=== PATIENT | female | born 1970 | race American Indian/Alaskan Native ===

== ENCOUNTER 2019-04-08 14:12 | Emergency (ER) | payer MEDICAID ==
--- NOTE | 2019-04-08 14:26 | Event Note ---
ED Screening Note Date of service: 04/08/19 Time: 14:21 ED Screening Note: This is a 49 y.o. F. that presents to the ER with facial swelling and abscess to left frontal scalp 1-2 weeks. PMH anxiety, depression, & HTN This initial assessment/diagnostic orders/clinical plan/treatment(s) is/are subject to change based on patients health status, clinical progression and re- assessment by fellow clinical providers in the ED. Further treatment and workup at subsequent clinical providers discretion. Patient/guardian urged not to elope from the ED as their condition may be serious if not clinically assessed and managed. Initial orders include: Labs and CT of facial bones
[2019-04-08 14:59] LABS: Hemoglobin 13.1 gm/dl (10.1-14.3); Mean Corpuscular HGB Conc 34 % (30-34); Mean Corpuscular Volume 94 fl (79-97); Platelet Count 256 K/mm3 (140-440); Red Blood Count 4.14 M/mm3 (3.65-5.03); Red Cell Distribution Width 14.6 % (13.2-15.2)
[2019-04-08] MEDS ORDERED: CLEOCIN PO ONE (15:13)
[2019-04-08 15:19] LABS: BUN/Creatinine Ratio 13; Blood Urea Nitrogen 8 mg/dL (7-17); Calcium 9.4 mg/dL (8.4-10.2); Hemolysis Index 17
[2019-04-08] MEDS ORDERED: K-DUR PO ONE (16:28)
[2019-04-08] MEDS ORDERED: IBUPROFEN PO ONE (16:46)
[2019-04-08] MEDS ORDERED: IBUPROFEN ONE (16:50)
--- NOTE | 2019-04-08 17:43 | Emergency Department Report ---
HPI - General Chief Complaint: Skin Rash Time Seen by Provider: 04/08/19 14:21 - HPI HPI: 49-year-old female presents to the emergency department some painful swollen lesions that have been occurring to her face over the past few days. She says that she has had this in the past. She also has some swelling around the left eye. She denies any injury, fall, trauma. The patient admits to a history of bad anxiety and has been scratching herself a lot. The patient says that she has "come on rough times" lately and essentially has been homeless. She has been staying at a friend's house in their trailer and says that she has been exposed to some black mold. She has a past medical history of arthritis, COPD, hypertension, depression, anxiety. She does not have any primary care physician. She has not taken anything for her symptoms prior to presentation. ED Past Medical Hx - Past Medical History Previous Medical History?: Yes Hx Hypertension: Yes Hx Heart Attack/AMI: No Hx Congestive Heart Failure: No Hx Diabetes: No Hx Deep Vein Thrombosis: No Hx Arthritis: Yes Hx Headaches / Migraines: No Hx Psychiatric Treatment: Yes (DEPRESSION,anxiety) Hx COPD: Yes Hx HIV: No Additional medical history: CHRONIC BACK PAIN, OA - Surgical History Past Surgical History?: Yes Hx Coronary Stent: No Additional Surgical History: CS 4X,TUBAL LIGATION, TONSILECTOMY - Social History Smoking Status: Current Some Day Smoker Substance Use Type: Alcohol, Marijuana - Medications Home Medications: Home Medications Medication Instructions Recorded Confirmed Last Taken Type Ibuprofen [Motrin 800 MG tab] 800 mg PO TID PRN #21 tablet 09/20/14 03/30/15 03/29/15 Rx ALBUTEROL Inhaler (OR & NICU) 2 puff IH TID PRN 03/30/15 03/30/15 03/30/15 History [ProAir HFA Inhaler] ALPRAZolam [Xanax TAB] 2 mg PO QHS 03/30/15 03/30/15 03/29/15 History Chlorthalidone [Thalitone] 25 mg PO QDAY 03/30/15 03/30/15 03/23/15 History Fluticasone/Salmeterol [Advair 1 each IH QDAY 03/30/15 03/30/15 Unknown History 250-50 Diskus] Nortriptyline [Pamelor] 25 mg PO QDAY 03/30/15 03/30/15 03/23/15 History Oxycodone HCl/Acetaminophen 1 tab PO Q6HR 03/30/15 03/30/15 03/30/15 09:00 History [Oxycodone-Acetaminophen 5-325] Tiotropium [Spiriva] 1 tab INHALATION QDAY 03/30/15 03/30/15 03/29/15 History Acetaminophen/Codeine [Tylenol #3] 1 tab PO Q4HR PRN #10 tablet 08/13/16 Unknown Rx Ibuprofen [Motrin] 800 mg PO Q8HR PRN #15 tablet 08/13/16 Unknown Rx Clindamycin [Clindamycin CAP] 300 mg PO Q8H #21 cap 04/08/19 Unknown Rx Mupirocin [Bactroban 2%] 1 applic TP TID #1 tube 04/08/19 Unknown Rx ED Review of Systems ROS: Stated complaint: HANDS NUMB/FACE SWELLING Other details as noted in HPI Comment: All other systems reviewed and negative Constitutional: denies: chills, fever Eyes: denies: eye pain, vision change ENT: denies: ear pain, throat pain Respiratory: denies: cough, shortness of breath Cardiovascular: denies: chest pain, palpitations Gastrointestinal: denies: abdominal pain, vomiting Genitourinary: denies: dysuria, discharge Musculoskeletal: denies: back pain, arthralgia Skin: rash, lesions Neurological: headache. denies: weakness, numbness Physical Exam - Physical Exam Vital Signs: Vital Signs 04/08/19 04/08/19 04/08/19 14:21 15:43 16:49 Temperature 98.4 F Pulse Rate 83 Respiratory 16 16 17 Rate Blood Pressure 137/79 [Right] O2 Sat by Pulse 100 Oximetry Physical Exam: GENERAL: The patient is well-developed well-nourished. HENT: Normocephalic. Atraumatic. Patient has moist mucous membranes. EYES: Extraocular motions are intact. Pupils equal reactive to light bilaterally. NECK: Supple. Trachea is midline. CHEST/LUNGS: Clear to auscultation. There is no respiratory distress noted. HEART/CARDIOVASCULAR: Regular. There is no tachycardia. There is no murmur. ABDOMEN: Abdomen is soft, nontender. Patient has normal bowel sounds. There is no abdominal distention. SKIN: There is left periorbital edema but no erythema there. The patient has a lesion to the left upper forehead that is the size of half of a golf ball. It is firm/indurated, erythematous, with a central small ulcer. The patient also has another much smaller lesion to the right cheek. NEURO: The patient is awake, alert, and oriented. The patient is cooperative. The patient has no focal neurologic deficits. The patient has normal speech. Cranial nerves II through XII grossly intact. MUSCULOSKELETAL: There is no tenderness or deformity. There is no evidence of acute injury. ED Course Vital Signs 04/08/19 04/08/19 04/08/19 14:21 15:43 16:49 Temperature 98.4 F Pulse Rate 83 Respiratory 16 16 17 Rate Blood Pressure 137/79 [Right] O2 Sat by Pulse 100 Oximetry ED Medical Decision Making - Lab Data Result diagrams: 04/08/19 14:36 04/08/19 14:36 - Radiology Data Radiology results: report reviewed CT head/brain wo con INDICATION: Headache, facial swelling. TECHNIQUE: Routine CT head without contrast. All CT scans at this location are performed using CT dose reduction for ALARA by means of automated exposure control. COMPARISON: None. FINDINGS: BRAIN / INTRACRANIAL CONTENTS: Soft tissue swelling in the left frontal scalp without discrete fluid collection. Underlying calvarium appears intact and normal. No acute hemorrhage, mass effect, midline shift, or hydrocephalus. No appreciable acute large territorial or lacunar infarct. Normal he-white differentiation. Normal ventricular and cisternal size for age. Moderate hyperostosis frontalis and calcification of the falx cerebri. ORBITS: No significant abnormality of visualized orbits. SINUSES / MASTOIDS: No significant abnormality of visualized sinuses and mastoid air cells. ADDITIONAL FINDINGS: None. IMPRESSION: 1. No acute intracranial abnormality. 2. Subcutaneous edema and soft tissue swelling in the left frontal scalp without evidence of significant calvarial abnormality. Paranasal sinuses appear clear. CT ORBIT without contrast INDICATION: Periorbital facial swelling. TECHNIQUE: CT ORBIT without contrast. All CT scans at this location are performed using CT dose reduction for ALARA by means of automated exposure control. COMPARISON: None available. FINDINGS: There is moderate preseptal edema and soft tissue swelling in the left periorbital soft tissues extending into the left forehead without discrete well-defined fluid collection or abscess. There is no evidence of postseptal extension into the left orbit. The left globe appears normal. No radiopaque foreign bodies are identified. The paranasal sinuses are clear. There is no aggressive appearing bone destruction. The mastoid air cells and middle ears are clear. IMPRESSION: 1. Preseptal cellulitis around the left orbit extending into the left forehead without discrete fluid collection. No evidence of postseptal cellulitis in the left orbit. - Medical Decision Making This patient presents with a complaint of a three-day history of some rash and lesions to the face. The largest one is to the left upper forehead. There is some swelling around the left eye. Labs are mostly unremarkable except for a very mild leukocytosis. Vital signs stable including being afebrile. CT of the head did not show any bleed, shift, mass, ischemia, or any other acute process. CT of the orbits shows a preseptal cellulitis to the left orbit but no post- septal cellulitis. The patient is placed on both clindamycin and Bactroban. She's been given referrals for primary care and dermatology. She will return to the ER with any worsening of her symptoms or any acute distress. - Differential Diagnosis cellulitis, abscess, cyst, dermatitis Critical Care Time: No Critical care attestation.: If time is entered above; I have spent that time in minutes in the direct care of this critically ill patient, excluding procedure time. ED Disposition Clinical Impression: Facial rash, Rash and nonspecific skin eruption Disposition: DC- TO HOME OR SELFCARE Is pt being admited?: No Condition: Stable Instructions: Acute Rash (ED), Abscess (ED) Additional Instructions: Please follow up with a primary care physician in the next few days. I have given you a referral for a local primary care clinic. I have also given you a referral for a local branch specialist. Take the antibiotics as prescribed. Return to the emergency Department with any worsening of your symptoms or any acute distress. Prescriptions: Mupirocin [Bactroban 2%] 1 applic TP TID #1 tube Clindamycin [Clindamycin CAP] 300 mg PO Q8H #21 cap Referrals: CHATA LIMON MD [Staff Physician] - 2-3 Days [facility] [Outside] - 2-3 Days
--- NOTE | 2019-04-08 17:46 | Cat Scan Report ---
CT head/brain wo con INDICATION: Headache, facial swelling. TECHNIQUE: Routine CT head without contrast. All CT scans at this location are performed using CT dos e reduction for ALARA by means of automated exposure control. COMPARISON: None. FINDINGS: BRAIN / INTRACRANIAL CONTENTS: Soft tissue swelling in the left frontal scalp without discrete fluid collection. Underlying calvarium appears intact and normal. No acute hemorrhage, mass effect, midline shift, or hydrocephalus. No appreciable acute large territorial or lacunar infarct. Normal he-whit e differentiation. Normal ventricular and cisternal size for age. Moderate hyperostosis frontalis and calcification of the falx cerebri. ORBITS: No significant abnormality of visualized orbits. SINUSES / MASTOIDS: No significant abnormality of visualized sinuses and mastoid air cells. ADDITIONAL FINDINGS: None. IMPRESSION: 1. No acute intracranial abnormality. 2. Subcutaneous edema and soft tissue swelling in the left frontal scalp without evidence of signific ant calvarial abnormality. Paranasal sinuses appear clear. Signer Name: Vikash Arambula MD Signed: 04/08/2019 5:42 PM Workstation Name: [id number]
--- NOTE | 2019-04-08 18:00 | Cat Scan Report ---
CT ORBIT without contrast INDICATION: Periorbital facial swelling. TECHNIQUE: CT ORBIT without contrast. All CT scans at this location are performed using CT dose reduction for AL ISABELLE by means of automated exposure control. COMPARISON: None available. FINDINGS: There is moderate preseptal edema and soft tissue swelling in the left periorbital soft tissues exten ding into the left forehead without discrete well-defined fluid collection or abscess. There is no ev idence of postseptal extension into the left orbit. The left globe appears normal. No radiopaque fore ign bodies are identified. The paranasal sinuses are clear. There is no aggressive appearing bone elmo truction. The mastoid air cells and middle ears are clear. IMPRESSION: 1. Preseptal cellulitis around the left orbit extending into the left forehead without discrete fluid collection. No evidence of postseptal cellulitis in the left orbit. Signer Name: Vikash Arambula MD Signed: 04/08/2019 5:56 PM Workstation Name: [id number]
[2019-04-08 18:21] VITALS: BP 130/83
== END 2019-04-08 18:22 | disposition home or self-care (01) ==
LOC: ED 14:12
DX: R21 Rash and other nonspecific skin eruption (principal); I10 Essential (primary) hypertension; M19.90 Unspecified osteoarthritis, unspecified site; F32.9 Major depressive disorder, single episode, unspecified; F41.9 Anxiety disorder, unspecified; J44.9 Chronic obstructive pulmonary disease, unspecified; G89.29 Other chronic pain; M54.9 Dorsalgia, unspecified; F17.200 Nicotine dependence, unspecified, uncomplicated; F12.90 Cannabis use, unspecified, uncomplicated; Z98.51 Tubal ligation status; Z79.899 Other long term (current) drug therapy; Z88.2 Allergy status to sulfonamides
CPT/HCPCS: 36415; 70450; 70480; 80048; 84443; 85027; 99284

== ENCOUNTER 2020-09-19 18:10 | Observation (INO) | payer MEDICAID ==
--- NOTE | 2020-09-19 18:20 | Consultation ---
History of Present Illness Consult date: 09/19/20 Reason for Consult: ams History of present illness: [facility] Date of Service: 09/19/2020 18:02:07 Impression: G93.4 - Encephalopathy, unspecified Comments/Sign-Out: 50 yo F with acute onset of encephalopathy now not speaking and indicating that she is having severe pain in her right ear that has rendered her mute (not aphasic; she is not attempting to make any vocalizations which makes no sense). This is highly atypical and does not seem consistent with stroke. Dissection c ould cause referred pain to the ear with stroke like symptoms but highly unlikely Suspect toxic metabolic drug intoxication or psychiatric disorder Metrics: Last Known Well: 09/19/2020 17:00:00 [facility] Notification Time: 09/19/2020 18:01:32 Arrival Time: 09/19/2020 18:10:00 Stamp Time: 09/19/2020 18:02:07 Time First Login Attempt: 09/19/2020 18:06:49 Symptoms: ams, not speaking, pain in right ear NIHSS Start Assessment Time: 09/19/2020 18:11:14 Patient is not a candidate for Alteplase/Activase. Patient was not deemed candidate for Alteplase/Activase thrombolytics because of Nonfocal exam except not vocalizing, cannot r/o CIs. CT head showed no acute hemorrhage or acute core infarct. Lower Likelihood of Large Vessel Occlusion but Following Stat Studies are Recommended CTA Head and Neck. Reviewed, No Indication of Large Vessel Occlusive Thrombus, Patient is not an PERICO Candidate. ED Physician notified of diagnostic impression and management plan on 09/19/2020 18:44:55 Our recommendations are outlined below. Recommendations: STAT CTA head and neck to rule out dissection or LVO -- negative Aspirin x 1 Will not recommend alteplase since symptoms not consistent with ischemic stroke and cannot confirm history w patient who is not speaking, no contact information. If there is concern for stroke and no evidence of toxic metabolic encephalopathy, MRI can be considered Routine Consultation with Inhouse Neurology for Follow up Care Sign Out: Discussed with Emergency Department Provider History of Present Illness: Patient is a 50 year old Female. Patient was brought by EMS for symptoms of ams, not speaking, pain in right ear 50 yo F hx marijuana and tobacco abuse depression anxiety HTN COPD who presents with altered mental status. She complains of severe R ear pain and inability to talk as a result. She was making food at home. Boyfriend left the room and came back to find her unresponsive on the ground. Past Medical History: Hypertension NIHSS may not be reliable due to: Altered mental status Examination: BP(.), Pulse(.), Blood Glucose(.) 1A: Level of Consciousness - Alert; keenly responsive + 0 1B: Ask Month and Age - Both Questions Right + 0 1C: Blink Eyes & Squeeze Hands - Performs Both Tasks + 0 2: Test Horizontal Extraocular Movements - Normal + 0 3: Test Visual Vargas - No Visual Loss + 0 4: Test Facial Palsy (Use Grimace if Obtunded) - Normal symmetry + 0 5A: Test Left Arm Motor Drift - No Drift for 10 Seconds + 0 5B: Test Right Arm Motor Drift - No Drift for 10 Seconds + 0 6A: Test Left Leg Motor Drift - No Drift for 5 Seconds + 0 6B: Test Right Leg Motor Drift - No Drift for 5 Seconds + 0 7: Test Limb Ataxia (FNF/Heel-Duggan) - No Ataxia + 0 8: Test Sensation - Normal; No sensory loss + 0 9: Test Language/Aphasia - Normal; No aphasia + 0 10: Test Dysarthria - Mute/Anarthric + 2 11: Test Extinction/Inattention - No abnormality + 0 NIHSS Score: 2 Pre-Morbid Modified Ranking Scale: 0 Points = No symptoms at all Patient/Family was informed the Neurology Consult would happen via TeleHealth consult by way of interactive audio and video telecommunications and consented to receiving care in this manner. Due to the immediate potential for life-threatening deterioration due to underlying acute neurologic illness, I spent 35 minutes providing critical care. This time includes time for face to face visit via telemedicine, review of medical records, imaging studies and discussion of findings with providers, the patient and/or family. Dr Jose Mccormick [facility] Case [id number] Medications and Allergies Allergies Allergy/AdvReac Type Severity Reaction Status Date / Time Sulfa (Sulfonamide Allergy Unknown Verified 04/08/19 14:21 Antibiotics) Home Medications Medication Instructions Recorded Confirmed Last Taken Type Ibuprofen [Motrin 800 MG tab] 800 mg PO TID PRN #21 tablet 09/20/14 03/30/15 03/29/15 Rx ALPRAZolam [Xanax TAB] 2 mg PO QHS 03/30/15 03/30/15 03/29/15 History Albuterol Mdi (or & Nicu Only) 2 puff IH TID PRN 03/30/15 03/30/15 03/30/15 History [ProAir HFA Inhaler] Chlorthalidone [Thalitone] 25 mg PO QDAY 03/30/15 03/30/15 03/23/15 History Fluticasone/Salmeterol [Advair 1 each IH QDAY 03/30/15 03/30/15 Unknown History 250-50 Diskus] Nortriptyline [Pamelor] 25 mg PO QDAY 03/30/15 03/30/15 03/23/15 History Oxycodone HCl/Acetaminophen 1 tab PO Q6HR 03/30/15 03/30/15 03/30/15 09:00 History [Oxycodone-Acetaminophen 5-325] Tiotropium [Spiriva] 1 tab INHALATION QDAY 03/30/15 03/30/15 03/29/15 History Acetaminophen/Codeine [Tylenol #3] 1 tab PO Q4HR PRN #10 tablet 08/13/16 Unknown Rx Ibuprofen [Motrin] 800 mg PO Q8HR PRN #15 tablet 08/13/16 Unknown Rx Clindamycin [Clindamycin CAP] 300 mg PO Q8H #21 cap 04/08/19 Unknown Rx Mupirocin [Bactroban 2%] 1 applic TP TID #1 tube 04/08/19 Unknown Rx Results - Laboratory Findings CBC and BMP: 09/19/20 18:52 09/19/20 18:52
--- NOTE | 2020-09-19 19:03 | Cat Scan Report ---
CT head/brain wo con INDICATION / CLINICAL INFORMATION: 50 years Female; MAIN. TECHNIQUE: Routine CT head without contrast. All CT scans at this location are performed using CT dos e reduction for ALARA by means of automated exposure control. COMPARISON: The study is compared to the previous CT of 04/08/2019. FINDINGS: BRAIN / INTRACRANIAL CONTENTS: The motion and positioning degrade the image quality. Additionally, th ere is hyperostosis frontalis interna which results in beam hardening. However, the brain parenchyma appears to demonstrate appropriate attenuation. The ventricular system is within normal limits in siz e and configuration. There is dense calcification along the falx. However, there is no clear CT evidence of acute intracra nial hemorrhage or significant mass effect. ORBITS: No significant abnormality of visualized orbits. SINUSES / MASTOIDS: No significant abnormality in the visualized paranasal sinuses or mastoid air russell ls. CRANIOCERVICAL JUNCTION: No significant abnormality. ADDITIONAL FINDINGS: None. IMPRESSION: 1. There is no clear CT evidence of acute intracranial process. The study was specified as code stroke and called emergently to Dr. Randhawa at 5:56 PM Central standard time. Signer Name: Angel Song MD Signed: 09/19/2020 6:59 PM Workstation Name: [id number]
--- NOTE | 2020-09-19 19:04 | Emergency Department Report ---
HPI - General Chief Complaint: Altered Mental Status Time Seen by Provider: 09/19/20 18:37 - HPI HPI: This is a 50-year-old female presents to the emergency department, via EMS from home, with a complaint of right ear and right-sided neck pain. The patient says that her significant other called for EMS at her request. The patient was made a code stroke through triage and went directly to CT scan where she was seen by a telemedicine neurologist. At that time, the patient was nonverbal but was following commands. The patient had a CT scan of the head and then CT angiography of the head and neck before coming back to bed #37. At the time of my examination the patient's complaint is the right sided ear pain that she says has been going on for the past 2 months but worsened today. She has a past medical history of COPD, not oxygen dependent, and hypertension. She has not taken anything for symptoms prior to presentation today. She does not have a primary care physician. She denies any chest pain, fever, vision change, numbness or paresthesias, shortness of breath. She denies any current alcohol use, tobacco use, or illicit drug use. ED Past Medical Hx - Past Medical History Hx Hypertension: Yes Hx Heart Attack/AMI: No Hx Congestive Heart Failure: No Hx Diabetes: No Hx Deep Vein Thrombosis: No Hx Arthritis: Yes Hx Headaches / Migraines: No Hx Psychiatric Treatment: Yes (DEPRESSION,anxiety) Hx COPD: Yes Hx HIV: No Additional medical history: CHRONIC BACK PAIN, OA - Surgical History Hx Coronary Stent: No Additional Surgical History: CS 4X,TUBAL LIGATION, TONSILECTOMY - Social History Smoking Status: Current Some Day Smoker Substance Use Type: Alcohol, Marijuana - Medications Home Medications: Home Medications Medication Instructions Recorded Confirmed Last Taken Type Ibuprofen [Motrin 800 MG tab] 800 mg PO TID PRN #21 tablet 09/20/14 03/30/15 03/29/15 Rx ALPRAZolam [Xanax TAB] 2 mg PO QHS 03/30/15 03/30/15 03/29/15 History Albuterol Mdi (or & Nicu Only) 2 puff IH TID PRN 03/30/15 03/30/15 03/30/15 History [ProAir HFA Inhaler] Chlorthalidone [Thalitone] 25 mg PO QDAY 07/03/30/15 03/23/15 History Fluticasone/Salmeterol [Advair 1 each IH QDAY 03/30/15 03/30/15 Unknown History 250-50 Diskus] Nortriptyline [Pamelor] 25 mg PO QDAY 03/30/15 03/30/15 03/23/15 History Oxycodone HCl/Acetaminophen 1 tab PO Q6HR 03/30/15 03/30/15 03/30/15 09:00 History [Oxycodone-Acetaminophen 5-325] Tiotropium [Spiriva] 1 tab INHALATION QDAY 03/30/15 03/30/15 03/29/15 History Acetaminophen/Codeine [Tylenol #3] 1 tab PO Q4HR PRN #10 tablet 08/13/16 Unknown Rx Ibuprofen [Motrin] 800 mg PO Q8HR PRN #15 tablet 08/13/16 Unknown Rx Clindamycin [Clindamycin CAP] 300 mg PO Q8H #21 cap 04/08/19 Unknown Rx Mupirocin [Bactroban 2%] 1 applic TP TID #1 tube 04/08/19 Unknown Rx ED Review of Systems ROS: Stated complaint: STROKE Other details as noted in HPI Comment: All other systems reviewed and negative Constitutional: denies: chills, fever Eyes: denies: eye pain, vision change ENT: ear pain. denies: throat pain Respiratory: denies: cough, shortness of breath Cardiovascular: denies: chest pain, palpitations Gastrointestinal: denies: abdominal pain, vomiting Genitourinary: denies: dysuria, discharge Musculoskeletal: denies: back pain, arthralgia Skin: denies: rash, lesions Neurological: denies: weakness, numbness Physical Exam - Physical Exam Physical Exam: GENERAL: The patient appears weak/frail and is ill-appearing. HENT: Normocephalic. Atraumatic. Patient has moist mucous membranes. EYES: Extraocular motions are intact. No nystagmus. NECK: Supple. Trachea is midline. CHEST/LUNGS: Clear to auscultation. There is no respiratory distress noted. HEART/CARDIOVASCULAR: Regular. There is no tachycardia. There is no murmur. ABDOMEN: Abdomen is soft, nontender. Patient has normal bowel sounds. There is no abdominal distention. SKIN: Skin is warm and dry. NEURO: The patient is awake, alert, and oriented. The patient is cooperative. There is no slurred speech but the patient talks very quietly and slowly. No facial asymmetry. No pronator drift. MUSCULOSKELETAL: There is no tenderness or deformity. There is no limitation range of motion. ED Course - Reevaluation(s) Reevaluation #1: 09/19/20 19:33 I spoke with the patient's daughter, Nevin, who was able to give me the name and phone number of the patient's "roommate", who is the person that called for EMS. The daughter says that they do not live near the patient but she was contacted by the roommate, Boogie, after he called for EMS. Nevin gave me the phone number for the roommate, Boogie, at [phone]. She also gave me the phone number for the patient's sister, Cecilia Zeng, at [phone]. I spoke with the roommate, Boogie. He says that the patient was cooking in the kitchen when he just returned from the store. He heard some weird noises coming from the kitchen and called out to her but she did not respond. At first, he thought that maybe she went back to her room. He then heard the weird noises again and went into the kitchen to find the patient holding the side of her head and complaining of ear pain. However she was not talking. She then went to the ground and appeared unresponsive so he started CPR but then noticed that she was moving and breathing. EMS initial call was for a patient who was unresponsive but breathing. Both the roommate, as well as the daughter, say that the patient has a history of depression and that she also has some chronic pains and both of these will cause her to go into episodes in which she sleeps and does not eat. ED Medical Decision Making - Lab Data Result diagrams: 09/19/20 18:52 09/19/20 18:52 Lab Results 09/19/20 09/19/20 09/19/20 Range/Units 18:52 18:52 18:52 WBC 9.6 (4.5-11.0) K/mm3 RBC 3.87 (3.65-5.03) M/mm3 Hgb 12.6 (10.1-14.3) gm/dl Hct 37.0 (30.3-42.9) % MCV 96 (79-97) fl MCH 33 H (28-32) pg MCHC 34 (30-34) % RDW 13.4 (13.2-15.2) % Plt Count 243 (140-440) K/mm3 Lymph % (Auto) 20.5 (13.4-35.0) % Tate % (Auto) 7.5 H (0.0-7.3) % Eos % (Auto) 2.8 (0.0-4.3) % Baso % (Auto) 0.7 (0.0-1.8) % Lymph # (Auto) 2.0 (1.2-5.4) K/mm3 Tate # (Auto) 0.7 (0.0-0.8) K/mm3 Eos # (Auto) 0.3 (0.0-0.4) K/mm3 Baso # (Auto) 0.1 (0.0-0.1) K/mm3 Seg Neutrophils % 68.5 (40.0-70.0) % Seg Neutrophils # 6.6 (1.8-7.7) K/mm3 PT 15.3 H (12.2-14.9) Sec. INR 1.21 H (0.87-1.13) APTT 30.1 (24.2-36.6) Sec. Thrombin Time (15.1-19.6) Sec. Sodium 132 L (137-145) mmol/L Potassium 3.1 L (3.6-5.0) mmol/L Chloride 99.8 (98-107) mmol/L Carbon Dioxide 23 (22-30) mmol/L Anion Gap 12 mmol/L BUN 11 (7-17) mg/dL Creatinine 0.8 (0.6-1.2) mg/dL Estimated GFR > 60 ml/min BUN/Creatinine Ratio 14 % Glucose 98 (65-100) mg/dL Calcium 8.9 (8.4-10.2) mg/dL Total Bilirubin (0.1-1.2) mg/dL Direct Bilirubin (0-0.2) mg/dL Indirect Bilirubin mg/dL AST (5-40) units/L ALT (7-56) units/L Alkaline Phosphatase (35-129) units/L Troponin T < 0.010 (0.00-0.029) ng/mL Total Protein (6.3-8.2) g/dL Albumin (3.9-5) g/dL Albumin/Globulin Ratio % TSH (0.270-4.200) mlU/mL Urine Color (Yellow) Urine Turbidity (Clear) Urine pH (5.0-7.0) Urine Protein (Negative) mg/dL Urine Glucose (UA) (Negative) mg/dL Urine Ketones (Negative) mg/dL Urine Blood (Negative) Urine Nitrite (Negative) Urine Bilirubin (Negative) Urine Urobilinogen (<2.0) mg/dL Ur Leukocyte Esterase (Negative) Urine WBC (Auto) (0.0-6.0) /HPF Urine RBC (Auto) (0.0-6.0) /HPF U Epithel Cells (Auto) (0-13.0) /HPF Urine Bacteria (Auto) (Negative) /HPF Urine Mucus /HPF Urine Opiates Screen Urine Methadone Screen Acetaminophen (10.0-30.0) ug/mL Ur Barbiturates Screen Ur Phencyclidine Scrn Ur Amphetamines Screen U Benzodiazepines Scrn Urine Cocaine Screen U Marijuana (THC) Screen Drugs of Abuse Note Plasma/Serum Alcohol (0-0.07) % 09/19/20 09/19/20 09/19/20 Range/Units 18:52 18:52 18:52 WBC (4.5-11.0) K/mm3 RBC (3.65-5.03) M/mm3 Hgb (10.1-14.3) gm/dl Hct (30.3-42.9) % MCV (79-97) fl MCH (28-32) pg MCHC (30-34) % RDW (13.2-15.2) % Plt Count (140-440) K/mm3 Lymph % (Auto) (13.4-35.0) % Tate % (Auto) (0.0-7.3) % Eos % (Auto) (0.0-4.3) % Baso % (Auto) (0.0-1.8) % Lymph # (Auto) (1.2-5.4) K/mm3 Tate # (Auto) (0.0-0.8) K/mm3 Eos # (Auto) (0.0-0.4) K/mm3 Baso # (Auto) (0.0-0.1) K/mm3 Seg Neutrophils % (40.0-70.0) % Seg Neutrophils # (1.8-7.7) K/mm3 PT (12.2-14.9) Sec. INR (0.87-1.13) APTT (24.2-36.6) Sec. Thrombin Time 17.7 (15.1-19.6) Sec. Sodium (137-145) mmol/L Potassium (3.6-5.0) mmol/L Chloride (98-107) mmol/L Carbon Dioxide (22-30) mmol/L Anion Gap mmol/L BUN (7-17) mg/dL Creatinine (0.6-1.2) mg/dL Estimated GFR ml/min BUN/Creatinine Ratio % Glucose (65-100) mg/dL Calcium (8.4-10.2) mg/dL Total Bilirubin 0.40 (0.1-1.2) mg/dL Direct Bilirubin < 0.2 (0-0.2) mg/dL Indirect Bilirubin 0.2 mg/dL AST 15 (5-40) units/L ALT 11 (7-56) units/L Alkaline Phosphatase 53 (35-129) units/L Troponin T (0.00-0.029) ng/mL Total Protein 6.2 L (6.3-8.2) g/dL Albumin 3.7 L (3.9-5) g/dL Albumin/Globulin Ratio 1.5 % TSH 1.180 (0.270-4.200) mlU/mL Urine Color (Yellow) Urine Turbidity (Clear) Urine pH (5.0-7.0) Urine Protein (Negative) mg/dL Urine Glucose (UA) (Negative) mg/dL Urine Ketones (Negative) mg/dL Urine Blood (Negative) Urine Nitrite (Negative) Urine Bilirubin (Negative) Urine Urobilinogen (<2.0) mg/dL Ur Leukocyte Esterase (Negative) Urine WBC (Auto) (0.0-6.0) /HPF Urine RBC (Auto) (0.0-6.0) /HPF U Epithel Cells (Auto) (0-13.0) /HPF Urine Bacteria (Auto) (Negative) /HPF Urine Mucus /HPF Urine Opiates Screen Urine Methadone Screen Acetaminophen (10.0-30.0) ug/mL Ur Barbiturates Screen Ur Phencyclidine Scrn Ur Amphetamines Screen U Benzodiazepines Scrn Urine Cocaine Screen U Marijuana (THC) Screen Drugs of Abuse Note Plasma/Serum Alcohol (0-0.07) % 09/19/20 09/19/20 09/19/20 Range/Units 18:52 18:52 21:50 WBC (4.5-11.0) K/mm3 RBC (3.65-5.03) M/mm3 Hgb (10.1-14.3) gm/dl Hct (30.3-42.9) % MCV (79-97) fl MCH (28-32) pg MCHC (30-34) % RDW (13.2-15.2) % Plt Count (140-440) K/mm3 Lymph % (Auto) (13.4-35.0) % Tate % (Auto) (0.0-7.3) % Eos % (Auto) (0.0-4.3) % Baso % (Auto) (0.0-1.8) % Lymph # (Auto) (1.2-5.4) K/mm3 Tate # (Auto) (0.0-0.8) K/mm3 Eos # (Auto) (0.0-0.4) K/mm3 Baso # (Auto) (0.0-0.1) K/mm3 Seg Neutrophils % (40.0-70.0) % Seg Neutrophils # (1.8-7.7) K/mm3 PT (12.2-14.9) Sec. INR (0.87-1.13) APTT (24.2-36.6) Sec. Thrombin Time (15.1-19.6) Sec. Sodium (137-145) mmol/L Potassium (3.6-5.0) mmol/L Chloride (98-107) mmol/L Carbon Dioxide (22-30) mmol/L Anion Gap mmol/L BUN (7-17) mg/dL Creatinine (0.6-1.2) mg/dL Estimated GFR ml/min BUN/Creatinine Ratio % Glucose (65-100) mg/dL Calcium (8.4-10.2) mg/dL Total Bilirubin (0.1-1.2) mg/dL Direct Bilirubin (0-0.2) mg/dL Indirect Bilirubin mg/dL AST (5-40) units/L ALT (7-56) units/L Alkaline Phosphatase (35-129) units/L Troponin T (0.00-0.029) ng/mL Total Protein (6.3-8.2) g/dL Albumin (3.9-5) g/dL Albumin/Globulin Ratio % TSH (0.270-4.200) mlU/mL Urine Color Yellow (Yellow) Urine Turbidity Clear (Clear) Urine pH 5.0 (5.0-7.0) Urine Protein <15 mg/dl (Negative) mg/dL Urine Glucose (UA) Neg (Negative) mg/dL Urine Ketones Tr (Negative) mg/dL Urine Blood Neg (Negative) Urine Nitrite Neg (Negative) Urine Bilirubin Neg (Negative) Urine Urobilinogen < 2.0 (<2.0) mg/dL Ur Leukocyte Esterase Neg (Negative) Urine WBC (Auto) 1.0 (0.0-6.0) /HPF Urine RBC (Auto) 8.0 (0.0-6.0) /HPF U Epithel Cells (Auto) 3.0 (0-13.0) /HPF Urine Bacteria (Auto) 1+ (Negative) /HPF Urine Mucus 3+ /HPF Urine Opiates Screen Urine Methadone Screen Acetaminophen 5.0 L (10.0-30.0) ug/mL Ur Barbiturates Screen Ur Phencyclidine Scrn Ur Amphetamines Screen U Benzodiazepines Scrn Urine Cocaine Screen U Marijuana (THC) Screen Drugs of Abuse Note Plasma/Serum Alcohol < 0.01 (0-0.07) % 09/19/20 Range/Units 21:50 WBC (4.5-11.0) K/mm3 RBC (3.65-5.03) M/mm3 Hgb (10.1-14.3) gm/dl Hct (30.3-42.9) % MCV (79-97) fl MCH (28-32) pg MCHC (30-34) % RDW (13.2-15.2) % Plt Count (140-440) K/mm3 Lymph % (Auto) (13.4-35.0) % Tate % (Auto) (0.0-7.3) % Eos % (Auto) (0.0-4.3) % Baso % (Auto) (0.0-1.8) % Lymph # (Auto) (1.2-5.4) K/mm3 Tate # (Auto) (0.0-0.8) K/mm3 Eos # (Auto) (0.0-0.4) K/mm3 Baso # (Auto) (0.0-0.1) K/mm3 Seg Neutrophils % (40.0-70.0) % Seg Neutrophils # (1.8-7.7) K/mm3 PT (12.2-14.9) Sec. INR (0.87-1.13) APTT (24.2-36.6) Sec. Thrombin Time (15.1-19.6) Sec. Sodium (137-145) mmol/L Potassium (3.6-5.0) mmol/L Chloride (98-107) mmol/L Carbon Dioxide (22-30) mmol/L Anion Gap mmol/L BUN (7-17) mg/dL Creatinine (0.6-1.2) mg/dL Estimated GFR ml/min BUN/Creatinine Ratio % Glucose (65-100) mg/dL Calcium (8.4-10.2) mg/dL Total Bilirubin (0.1-1.2) mg/dL Direct Bilirubin (0-0.2) mg/dL Indirect Bilirubin mg/dL AST (5-40) units/L ALT (7-56) units/L Alkaline Phosphatase (35-129) units/L Troponin T (0.00-0.029) ng/mL Total Protein (6.3-8.2) g/dL Albumin (3.9-5) g/dL Albumin/Globulin Ratio % TSH (0.270-4.200) mlU/mL Urine Color (Yellow) Urine Turbidity (Clear) Urine pH (5.0-7.0) Urine Protein (Negative) mg/dL Urine Glucose (UA) (Negative) mg/dL Urine Ketones (Negative) mg/dL Urine Blood (Negative) Urine Nitrite (Negative) Urine Bilirubin (Negative) Urine Urobilinogen (<2.0) mg/dL Ur Leukocyte Esterase (Negative) Urine WBC (Auto) (0.0-6.0) /HPF Urine RBC (Auto) (0.0-6.0) /HPF U Epithel Cells (Auto) (0-13.0) /HPF Urine Bacteria (Auto) (Negative) /HPF Urine Mucus /HPF Urine Opiates Screen Presumptive negative Urine Methadone Screen Presumptive negative Acetaminophen (10.0-30.0) ug/mL Ur Barbiturates Screen Presumptive negative Ur Phencyclidine Scrn Presumptive negative Ur Amphetamines Screen Presumptive positive U Benzodiazepines Scrn Presumptive negative Urine Cocaine Screen Presumptive negative U Marijuana (THC) Screen Presumptive positive Drugs of Abuse Note Disclamer Plasma/Serum Alcohol (0-0.07) % - EKG Data -: EKG Interpreted by [facility] EKG shows normal: sinus rhythm, axis, intervals, QRS complexes, ST-T waves Rate: normal - EKG Data When compared to previous EKG there are: previous EKG unavailable Interpretation: normal EKG - Radiology Data Radiology results: report reviewed CT head/brain wo con INDICATION / CLINICAL INFORMATION: 50 years Female; MAIN. TECHNIQUE: Routine CT head without contrast. All CT scans at this location are performed using CT dose reduction for ALAOgin by means of automated exposure control. COMPARISON: The study is compared to the previous CT of 04/08/2019. FINDINGS: BRAIN / INTRACRANIAL CONTENTS: The motion and positioning degrade the image quality. Additionally, there is hyperostosis frontalis interna which results in beam hardening. However, the brain parenchyma appears to demonstrate appropriate attenuation. The ventricular system is within normal limits in size and configuration. There is dense calcification along the falx. However, there is no clear CT evidence of acute intracranial hemorrhage or significant mass eff ect. ORBITS: No significant abnormality of visualized orbits. SINUSES / MASTOIDS: No significant abnormality in the visualized paranasal sinuses or mastoid air cells. CRANIOCERVICAL JUNCTION: No significant abnormality. ADDITIONAL FINDINGS: None. IMPRESSION: 1. There is no clear CT evidence of acute intracranial process. CTA head with intravenous contrast CLINICAL HISTORY: aphasia, right ear pain TECHNIQUE: 0.625 mm thick contiguous axial scans were obtained from the skull base to the skull vertex during rapid bolus administration of intravenous contrast material. Multiplanar reconstructions were produced in the coronal and sagittal planes. In addition 3 plane MIP instructions were produced and reviewed for this report. The axial source images and reconstructed images were reviewed for this report. CONTRAST DOSE REPORT: Omnipaque 350: 100 ml administered intravenously. All CT scans at this location are performed using CT dose reduction for ALARA by means of automated exposure control. FINDINGS: Internal carotid arteries:Jt, cavernous, opthalmic, clinoid and supraclinoid segments of the ICAs have an unremarkable appearance. Middle cerebral arteries:Normal and symmetrical M1 segments of the middle cerebral arteries are demonstrated. No abnormalities are seen on evaluation of the insular or opercular branches. Anterior cerebral arteries:Bilaterally symmetrical A1 segments are demonstrated. No abnormalities are seen along the course of the A2 segments or their visualized pericallosal branches. Vertebral arteries:Bilaterally symmetrical vertebral arteries are demonstrated. Both vertebral arteries contribute to the basilar artery origin. Basilar artery:Basilar artery has an unremarkable appearance. Posterior cerebral arteries: Large posterior communicating arteries are demonstrated bilaterally. Normal and symmetrical appearing posterior cerebral arteries are observed. Dural sinuses: Dural venous sinuses are poorly visualized on this examination. IMPRESSION: 1. No indication of large vessel occlusion or intracranial stenosis. CTA neck without and with intravenous contrast material CLINICAL HISTORY: Aphasia. Right-sided otalgia. TECHNIQUE: Following acquisition of a timing bolus 0.625 mm thick contiguous axial scans were obtained from aortic arch to the skull base during rapid bolus intravenous contrast infusion. In addition to evaluation of axial source images multiplanar reconstructions were produced and reviewed for this report. 3 plane MIP reconstructions were produced and reviewed. Contrast dose report: Omnipaque 350: 100 ml, administered intravenously All CT examinations performed at this facility utilize modulated dose reduction, iterative reconstruction or weight-based dosing, as appropriate, to obtain a radiation dose which is as low as can reasonably be achieved. FINDINGS: Thoracic aorta:No abnormalities are identified along the course of the thoracic aorta..The origins of the great vessels have an unremarkable appearance. Brachiocephalic artery, left common carotid artery origin and left subclavian artery all have an unremarkable appearance. Right carotid artery: Minimal calcified atherosclerotic plaque is observed at the right carotid bifurcation with no indication of associated stenosis. No significant abnormalities are seen along the course of the RCCA, at the right carotid bifurcation or along the cervical portions of the LOLI. Left carotid artery: No abnormalities are noted along the course of the left common carotid artery, at the left carotid bifurcation or along the course of the cervical segments of the LICA. Posterior circulation:The vertebral arteries have an unremarkable appearance. Both vertebral arteries contribute to the basilar artery origin. The basilar artery has an unremarkable appearance. The degree of stenosis, if any, is determined utilizing NASCET like criteria. In this case there is no indication of hemodynamically significant stenosis at the carotid bifurcations or elsewhere. Evaluation of the nonvascular soft tissue structures reveal no abnormality. There is no indication of cervical lymphadenopathy. No abnormalities are seen along the course of the airway. Visualized portions of the parotid glands and the submandibular salivary glands have a normal appearance. Thyroid gland has a normal appearance. Evaluation of the lung apices reveals no evidence of lung nodule or infiltrate. Cervical degenerative changes are observed. These are most pronounced at the C5-6 level. There is no indication of central canal stenosis. IMPRESSION: 1. No indication of hemodynamically significant stenosis at the carotid bifurcations or elsewhere. - Medical Decision Making This patient presented from home after she appears to have had some type of unresponsive episode. However at the time of my examination the patient's complaint was severe right ear pain, some right neck pain, and the patient says that she was awake and was the one who asked her roommate to call EMS. However the roommate says that the patient appeared unresponsive at home, and the telemedicine neurologist also says that the patient was completely mute or aphasic during his evaluation. The patient was made a code stroke and was given an NIH stroke scale of 2. CT scan of the head without contrast did not show any bleed, shift, mass, large territorial infarct, or any other acute process. Neurology did not feel that the patient was a TPA candidate. They did order a CT angiography of the head and neck, more so secondary to the complaint of the neck pain, then concern for a large vessel occlusion. The angiography studies did not show any occlusion, thrombus, or any other acute processes. The neurology consult says toxic encephalopathy versus intoxication versus other. Labs show some hypokalemia with a potassium of 3.1 that was replaced with potassium chloride. Urine drug screen positive for marijuana and amphetamines. The patient says that she takes Adderall and phentermine but denies methamphetamine use. Given the telemedicine neurologist's recommendation for admission and evaluation by in-house neurology, the patient was accepted for admission by the hospitalist, Dr. Tan. Critical Care Time: No Critical care attestation.: If time is entered above; I have spent that time in minutes in the direct care of this critically ill patient, excluding procedure time. ED Disposition Clinical Impression: Unresponsive episode, TIA (transient ischemic attack), Hypokalemia Disposition: [id number] OP ADMIT IP TO THIS HOSP Is pt being admited?: Yes Condition: Fair Time of Disposition: 23:11
[2020-09-19 19:09] LABS: Basophils # (Auto) 0.1 K/mm3 (0.0-0.1); Basophils % (Auto) 0.7 % (0.0-1.8); Eosinophils # (Auto) 0.3 K/mm3 (0.0-0.4); Eosinophils % (Auto) 2.8 % (0.0-4.3); Hemoglobin 12.6 gm/dl (10.1-14.3); Lymphocytes % (Auto) 20.5 % (13.4-35.0); Mean Corpuscular HGB Conc 34 % (30-34); Mean Corpuscular Volume 96 fl (79-97); Monocytes # (Auto) 0.7 K/mm3 (0.0-0.8); Monocytes % (Auto) 7.5 % (0.0-7.3); Platelet Count 243 K/mm3 (140-440); Red Blood Count 3.87 M/mm3 (3.65-5.03); Red Cell Distribution Width 13.4 % (13.2-15.2)
--- NOTE | 2020-09-19 19:18 | Cat Scan Report ---
CTA neck without and with intravenous contrast material CLINICAL HISTORY: Aphasia. Right-sided otalgia. TECHNIQUE: Following acquisition of a timing bolus 0.625 mm thick contiguous axial scans were obtained from aort ic arch to the skull base during rapid bolus intravenous contrast infusion. In addition to evaluation of axial source images multiplanar reconstructions were produced and reviewed for this report. 3 saeid ne MIP reconstructions were produced and reviewed. Contrast dose report: Omnipaque 350: 100 ml, administered intravenously All CT examinations performed at this facility utilize modulated dose reduction, iterative reconstruc tion or weight-based dosing, as appropriate, to obtain a radiation dose which is as low as can reason ably be achieved. FINDINGS: Thoracic aorta:No abnormalities are identified along the course of the thoracic aorta..The origins of the great vessels have an unremarkable appearance. Brachiocephalic artery, left common carotid arter y origin and left subclavian artery all have an unremarkable appearance. Right carotid artery: Minimal calcified atherosclerotic plaque is observed at the right carotid bifur cation with no indication of associated stenosis. No significant abnormalities are seen along the cou rse of the RCCA, at the right carotid bifurcation or along the cervical portions of the LOLI. Left carotid artery: No abnormalities are noted along the course of the left common carotid artery, a t the left carotid bifurcation or along the course of the cervical segments of the LICA. Posterior circulation:The vertebral arteries have an unremarkable appearance. Both vertebral arteries contribute to the basilar artery origin. The basilar artery has an unremarkable appearance. The degree of stenosis, if any, is determined utilizing NASCET like criteria. In this case there is no indication of hemodynamically significant stenosis at the carotid bifurcations or elsewhere. Evaluation of the nonvascular soft tissue structures reveal no abnormality. There is no indication of cervical lymphadenopathy. No abnormalities are seen along the course of the airway. Visualized porti ons of the parotid glands and the submandibular salivary glands have a normal appearance. Thyroid gla nd has a normal appearance. Evaluation of the lung apices reveals no evidence of lung nodule or infil trate. Cervical degenerative changes are observed. These are most pronounced at the C5-6 level. There is no indication of central canal stenosis. IMPRESSION: 1. No indication of hemodynamically significant stenosis at the carotid bifurcations or elsewhere. Signer Name: Kane Miller MD Signed: 09/19/2020 7:13 PM Workstation Name: [id number]
[2020-09-19 19:19] LABS: INR 1.21 (0.87-1.13); Partial Thromboplastin Time 30.1 Sec. (24.2-36.6)
[2020-09-19 19:24] LABS: Alanine Aminotransferase 11 units/L (7-56); Albumin 3.7 g/dL (3.9-5)
--- NOTE | 2020-09-19 19:26 | Cat Scan Report ---
CTA head with intravenous contrast CLINICAL HISTORY: aphasia, right ear pain TECHNIQUE: 0.625 mm thick contiguous axial scans were obtained from the skull base to the skull vertex during r apid bolus administration of intravenous contrast material. Multiplanar reconstructions were produced in the coronal and sagittal planes. In addition 3 plane MIP instructions were produced and reviewed for this report. The axial source images and reconstructed images were reviewed for this report. CONTRAST DOSE REPORT: Omnipaque 350: 100 ml administered intravenously. All CT scans at this location are performed using CT dose reduction for ALARA by means of automated e xposure control. FINDINGS: Internal carotid arteries:Jt, cavernous, opthalmic, clinoid and supraclinoid segments of the ICAs have an unremarkable appearance. Middle cerebral arteries:Normal and symmetrical M1 segments of the middle cerebral arteries are demon strated. No abnormalities are seen on evaluation of the insular or opercular branches. Anterior cerebral arteries:Bilaterally symmetrical A1 segments are demonstrated. No abnormalities are seen along the course of the A2 segments or their visualized pericallosal branches. Vertebral arteries:Bilaterally symmetrical vertebral arteries are demonstrated. Both vertebral arteri es contribute to the basilar artery origin. Basilar artery:Basilar artery has an unremarkable appearance. Posterior cerebral arteries: Large posterior communicating arteries are demonstrated bilaterally. Nor mal and symmetrical appearing posterior cerebral arteries are observed. Dural sinuses: Dural venous sinuses are poorly visualized on this examination. IMPRESSION: 1. No indication of large vessel occlusion or intracranial stenosis. Signer Name: Kane Miller MD Signed: 09/19/2020 7:21 PM Workstation Name: [id number]
[2020-09-19 19:27] LABS: BUN/Creatinine Ratio 14; Blood Urea Nitrogen 11 mg/dL (7-17); Calcium 8.9 mg/dL (8.4-10.2); Hemolysis Index 4
[2020-09-19] MEDS ORDERED: POTASSIUM CHLORIDE ER 20 MEQ TAB PO ONE (19:28)
[2020-09-19 19:52] LABS: Bilirubin,Direct < 0.2 mg/dL (0-0.2)
[2020-09-19] MEDS ORDERED: IBUPROFEN 600 MG TAB PO ONE (21:51)
[2020-09-19 22:06] LABS: Bacteria,Urine 1+ /HPF (Negative); Bilirubin,Urine NEG (Negative); Blood,Urine NEG (Negative); Color,Urine Yellow (Yellow); Mucus,Urine 3+ /HPF; Protein,Urine <15 mg/dL mg/dL (Negative); Urobilinogen,Urine < 2.0 mg/dL (<2.0)
[2020-09-19] MEDS ORDERED: METOCLOPRAMIDE 10 MG TAB PO PRN (23:24)
[2020-09-19] MEDS ORDERED: ACETAMINOPHEN 325 MG TAB PO PRN ×2 (23:24)
[2020-09-19] MEDS ORDERED: PROMETHAZINE 25 MG RECT SUPP PR PRN (23:24)
[2020-09-19] MEDS ORDERED: MAGNESIUM HYDROXIDE (MOM) ORAL LIQD UDC PO PRN (23:24)
[2020-09-19] MEDS ORDERED: ONDANSETRON 4 MG/2 ML INJ IV PRN ×2 (23:24)
[2020-09-19 23:25] LABS: Amphetamine Screen,Urine PRESUMPTIVE POSITIVE
[2020-09-19 23:26] LABS: Cannabinoid Screen,Urine PRESUMPTIVE POSITIVE
[2020-09-19 23:31] LABS: Benzodiazepines Screen,Urine PRESUMPTIVE NEGATIVE; Methadone Screen,Urine PRESUMPTIVE NEGATIVE; Opiate Screen,Urine PRESUMPTIVE NEGATIVE
[2020-09-19 23:32] LABS: Cocaine Screen,Urine PRESUMPTIVE NEGATIVE
--- NOTE | 2020-09-19 23:40 | History and Physical Report ---
History of Present Illness Date of examination: 09/19/20 Chief complaint: Altered mental status right ear pain History of present illness: 50 years old female with history of COPD and hypertension was brought to the emergency room because up right ear pain and right-sided neck pain and altered mental status. Patient complained of right-sided ear pain for the last 2 months but worsened today. Patient denied any chest pain no fever no vision change no numbness no paresthesia. Right now patient is awake alert oriented talking but complaining of right ear pain. Initial CT scan of the head shows no acute intracranial abnormality. Patient also seen and evaluated by telemetry neurology neurology. Past History Past Medical History: COPD, hypertension Medications and Allergies Allergies Allergy/AdvReac Type Severity Reaction Status Date / Time Sulfa (Sulfonamide Allergy Unknown Verified 04/08/19 14:21 Antibiotics) Home Medications Medication Instructions Recorded Confirmed Last Taken Type Ibuprofen [Motrin 800 MG tab] 800 mg PO TID PRN #21 tablet 09/20/14 03/30/15 03/29/15 Rx ALPRAZolam [Xanax TAB] 2 mg PO QHS 03/30/15 03/30/15 03/29/15 History Albuterol Mdi (or & Nicu Only) 2 puff IH TID PRN 03/30/15 03/30/15 03/30/15 H istory [ProAir HFA Inhaler] Chlorthalidone [Thalitone] 25 mg PO QDAY 03/30/15 03/30/15 03/23/15 History Fluticasone/Salmeterol [Advair 1 each IH QDAY 03/30/15 03/30/15 Unknown History 250-50 Diskus] Nortriptyline [Pamelor] 25 mg PO QDAY 03/30/15 03/30/15 03/23/15 History Oxycodone HCl/Acetaminophen 1 tab PO Q6HR 03/30/15 03/30/15 03/30/15 09:00 History [Oxycodone-Acetaminophen 5-325] Tiotropium [Spiriva] 1 tab INHALATION QDAY 03/30/15 03/30/15 03/29/15 History Acetaminophen/Codeine [Tylenol #3] 1 tab PO Q4HR PRN #10 tablet 08/13/16 Unknown Rx Ibuprofen [Motrin] 800 mg PO Q8HR PRN #15 tablet 08/13/16 Unknown Rx Clindamycin [Clindamycin CAP] 300 mg PO Q8H #21 cap 04/08/19 Unknown Rx Mupirocin [Bactroban 2%] 1 applic TP TID #1 tube 04/08/19 Unknown Rx Active Meds: Active Medications Acetaminophen (Acetaminophen 325 Mg Tab) 650 mg PO Q4H PRN PRN Reason: Pain MILD(1-3)/Fever >100.5/[place] Acetaminophen (Acetaminophen 325 Mg Tab) 650 mg PO Q4H PRN PRN Reason: Pain, Mild (1-3) Aspirin (Aspirin 325 Mg Tab) 325 mg PO QDAY KARL Atorvastatin Calcium (Atorvastatin 40 Mg Tab) 40 mg PO QHS KARL Bisacodyl (Bisacodyl 10 Mg Rect Supp) 10 mg SD QDAY PRN PRN Reason: Constipation Famotidine (Famotidine 20 Mg Tab) 20 mg PO BID KARL Sodium Chloride (Nacl 0.45% 1000 Ml) 1,000 mls @ 100 mls/hr IV DIRECT KARL Ceftriaxone Sodium (Rocephin/Ns 1 Gm/50 Ml) 1 gm in 50 mls @ 100 mls/hr IV Q24H KARL; Protocol Stop: 09/22/20 00:14 Labetalol HCl (Labetalol 20 Mg/4 Ml Inj) 10 mg IV Q5MIN PRN PRN Reason: to maintain SBP < 180 Magnesium Hydroxide (Magnesium Hydroxide (Mom) Oral Liqd Udc) 30 ml PO Q4H PRN PRN Reason: Constipation Metoclopramide HCl (Metoclopramide 10 Mg Tab) 10 mg PO Q6H PRN PRN Reason: Nausea And Vomiting Ondansetron HCl (Ondansetron 4 Mg/2 Ml Inj) 4 mg IV Q8H PRN PRN Reason: Nausea And Vomiting Ondansetron HCl (Ondansetron 4 Mg/2 Ml Inj) 4 mg IV Q8H PRN PRN Reason: Nausea And Vomiting Promethazine HCl (Promethazine 25 Mg Rect Supp) 25 mg SD Q6H PRN PRN Reason: Nausea And Vomiting Sodium Chloride (Sodium Chloride 0.9% 10 Ml Flush Syringe) 10 ml IV BID KARL Sodium Chloride (Sodium Chloride 0.9% 10 Ml Flush Syringe) 10 ml IV PRN PRN PRN Reason: LINE FLUSH Sodium Chloride (Sodium Chloride 0.9% 10 Ml Flush Syringe) 10 ml INJ PRN PRN PRN Reason: LINE FLUSH Review of Systems Ears, nose, mouth and throat: ear pain Breasts: deferred Neurological: change in mentation Exam - Constitutional Vitals: Temp Pulse Resp BP Pulse Ox 97.9 F 68 14 126/63 100 09/19/20 22:00 09/19/20 22:45 09/19/20 22:45 09/19/20 22:45 09/19/20 22:45 General appearance: Present: no acute distress - EENT Eyes: Present: PERRL ENT: hearing intact, clear oral mucosa - Neck Neck: Present: supple, normal ROM - Respiratory Respiratory effort: normal Respiratory: bilateral: CTA - Cardiovascular Heart Sounds: Present: S1 & S2. Absent: rub, click - Extremities Extremities: pulses symmetrical, No edema - Abdominal General gastrointestinal: Present: soft, non-tender, non-distended, normal bowel sounds Female genitourinary: Present: normal - Rectal Rectal Exam: deferred - Neurologic Neurologic: CNII-XII intact, moves all extremities HEART Score - HEART Score Troponin: Troponin T < 0.010 ng/mL (0.00-0.029) 09/19/20 18:52 Results - Labs CBC & Chem 7: 09/19/20 18:52 09/19/20 18:52 Labs: Laboratory Last Values WBC 9.6 K/mm3 (4.5-11.0) 09/19/20 18:52 RBC 3.87 M/mm3 (3.65-5.03) 09/19/20 18:52 Hgb 12.6 gm/dl (10.1-14.3) 09/19/20 18:52 Hct 37.0 % (30.3-42.9) 09/19/20 18:52 MCV 96 fl (79-97) 09/19/20 18:52 MCH 33 pg (28-32) H 09/19/20 18:52 MCHC 34 % (30-34) 09/19/20 18:52 RDW 13.4 % (13.2-15.2) 09/19/20 18:52 Plt Count 243 K/mm3 (140-440) 09/19/20 18:52 Lymph % (Auto) 20.5 % (13.4-35.0) 09/19/20 18:52 Bracken % (Auto) 7.5 % (0.0-7.3) H 09/19/20 18:52 Eos % (Auto) 2.8 % (0.0-4.3) 09/19/20 18:52 Baso % (Auto) 0.7 % (0.0-1.8) 09/19/20 18:52 Lymph # (Auto) 2.0 K/mm3 (1.2-5.4) 09/19/20 18:52 Bracken # (Auto) 0.7 K/mm3 (0.0-0.8) 09/19/20 18:52 Eos # (Auto) 0.3 K/mm3 (0.0-0.4) 09/19/20 18:52 Baso # (Auto) 0.1 K/mm3 (0.0-0.1) 09/19/20 18:52 Seg Neutrophils % 68.5 % (40.0-70.0) 09/19/20 18:52 Seg Neutrophils # 6.6 K/mm3 (1.8-7.7) 09/19/20 18:52 PT 15.3 Sec. (12.2-14.9) H 09/19/20 18:52 INR 1.21 (0.87-1.13) H 09/19/20 18:52 APTT 30.1 Sec. (24.2-36.6) 09/19/20 18:52 Thrombin Time 17.7 Sec. (15.1-19.6) 09/19/20 18:52 Sodium 132 mmol/L (137-145) L 09/19/20 18:52 Potassium 3.1 mmol/L (3.6-5.0) L 09/19/20 18:52 Chloride 99.8 mmol/L (98-107) 09/19/20 18:52 Carbon Dioxide 23 mmol/L (22-30) 09/19/20 18:52 Anion Gap 12 mmol/L 09/19/20 18:52 BUN 11 mg/dL (7-17) 09/19/20 18:52 Creatinine 0.8 mg/dL (0.6-1.2) 09/19/20 18:52 Estimated GFR > 60 ml/min 09/19/20 18:52 BUN/Creatinine Ratio 14 % 09/19/20 18:52 Glucose 98 mg/dL (65-100) 09/19/20 18:52 Calcium 8.9 mg/dL (8.4-10.2) 09/19/20 18:52 Total Bilirubin 0.40 mg/dL (0.1-1.2) 09/19/20 18:52 Direct Bilirubin < 0.2 mg/dL (0-0.2) 09/19/20 18:52 Indirect Bilirubin 0.2 mg/dL 09/19/20 18:52 AST 15 units/L (5-40) 09/19/20 18:52 ALT 11 units/L (7-56) 09/19/20 18:52 Alkaline Phosphatase 53 units/L (35-129) 09/19/20 18:52 Troponin T < 0.010 ng/mL (0.00-0.029) 09/19/20 18:52 Total Protein 6.2 g/dL (6.3-8.2) L 09/19/20 18:52 Albumin 3.7 g/dL (3.9-5) L 09/19/20 18:52 Albumin/Globulin Ratio 1.5 % 09/19/20 18:52 TSH 1.180 mlU/mL (0.270-4.200) 09/19/20 18:52 Urine Color Yellow (Yellow) 09/19/20 21:50 Urine Turbidity Clear (Clear) 09/19/20 21:50 Urine pH 5.0 (5.0-7.0) 09/19/20 21:50 Urine Protein <15 mg/dl mg/dL (Negative) 09/19/20 21:50 Urine Glucose (UA) Neg mg/dL (Negative) 09/19/20 21:50 Urine Ketones Tr mg/dL (Negative) 09/19/20 21:50 Urine Blood Neg (Negative) 09/19/20 21:50 Urine Nitrite Neg (Negative) 09/19/20 21:50 Urine Bilirubin Neg (Negative) 09/19/20 21:50 Urine Urobilinogen < 2.0 mg/dL (<2.0) 09/19/20 21:50 Ur Leukocyte Esterase Neg (Negative) 09/19/20 21:50 Urine WBC (Auto) 1.0 /HPF (0.0-6.0) 09/19/20 21:50 Urine RBC (Auto) 8.0 /HPF (0.0-6.0) 09/19/20 21:50 U Epithel Cells (Auto) 3.0 /HPF (0-13.0) 09/19/20 21:50 Urine Bacteria (Auto) 1+ /HPF (Negative) 09/19/20 21:50 Urine Mucus 3+ /HPF 09/19/20 21:50 Urine Opiates Screen Presumptive negative 09/19/20 21:50 Urine Methadone Screen Presumptive negative 09/19/20 21:50 Acetaminophen 5.0 ug/mL (10.0-30.0) L 09/19/20 18:52 Ur Barbiturates Screen Presumptive negative 09/19/20 21:50 Ur Phencyclidine Scrn Presumptive negative 09/19/20 21:50 Ur Amphetamines Screen Presumptive positive 09/19/20 21:50 U Benzodiazepines Scrn Presumptive negative 09/19/20 21:50 Urine Cocaine Screen Presumptive negative 09/19/20 21:50 U Marijuana (THC) Screen Presumptive positive 09/19/20 21:50 Drugs of Abuse Note Disclamer 09/19/20 21:50 Plasma/Serum Alcohol < 0.01 % (0-0.07) 09/19/20 18:52 - Imaging and Cardiology CT Scan - head: report reviewed Assessment and Plan - Patient Problems (1) Altered mental status Current Visit: Yes Status: Acute Plan to address problem: Admit the patient to the medical telemetry. Put the patient on TIA pathway. Aspirin 325 mg p.o. daily. Lipitor 40 mg p.o. daily. Patient already seen and evaluated by telemetry neurology. MRI of the brain with and without contrast. MRI of the brain and neck with and without contrast. Echocardiogram. PT OT speech evaluation. Will check lipid panel and ammonia level. Pepcid 20 mg p.o. twice daily for GI prophylaxis and heparin 5000 units subcu every 8 hours for DVT prophylaxis. We will recheck CBC CMP in the morning. Please consult neurology if needed. (2) Right ear pain Current Visit: Yes Status: Acute Plan to address problem: Rocephin 1 g IV daily. We will follow the MRI brain. If needed will consult ENT. (3) TIA (transient ischemic attack) Current Visit: Yes Status: Acute Plan to address problem: Admit the patient to the medical telemetry. Put the patient on TIA pathway. Aspirin 325 mg p.o. daily. Lipitor 40 mg p.o. daily. Patient already seen and evaluated by telemetry neurology. MRI of the brain with and without contrast. MRI of the brain and neck with and without contrast. Echocardiogram. PT OT speech evaluation. Will check lipid panel and ammonia level. Pepcid 20 mg p.o. twice daily for GI prophylaxis and heparin 5000 units subcu every 8 hours for DVT prophylaxis. We will recheck CBC CMP in the morning. Please consult neurology if needed. (4) HTN (hypertension) Current Visit: No Status: Chronic Qualifiers: Hypertension type: essential hypertension Qualified Code(s): I10 - Essential (primary) hypertension Plan to address problem: Labetalol 10 mg IV every 8 hours as needed. We will monitor the blood pressure closely. We will continue the home medication
[2020-09-19] MEDS ORDERED: SODIUM CHLORIDE 0.45% 1000 ML 1,000 ML IV SCH (23:45)
[2020-09-19] MEDS ORDERED: ALBUTEROL 8.5 GM MDI INHALATION IH PRN (23:48)
[2020-09-19] MEDS ORDERED: IBUPROFEN 800 MG TAB PO PRN (23:48)
[2020-09-19] MEDS ORDERED: ALBUTEROL 2.5 MG/3 ML NEBU IH PRN (23:53)
[2020-09-20] MEDS: HEPARIN 5,000 UNIT/1 ML VIAL SUB-Q SCH ×3 (00:04→14:05)
[2020-09-20] MEDS: FAMOTIDINE 20 MG TAB PO SCH ×2 (00:05→12:25)
[2020-09-20] MEDS: cefTRIAXone/NS 1 GM/50 ML 1 GM/50 ML BAG IV SCH ×2 (00:05→12:25)
[2020-09-20] MEDS: oxyCODONE /ACETAMINOPHEN 5-325MG TAB PO PRN ×2 (07:40→14:05)
[2020-09-20] MEDS ORDERED: MUPIROCIN 2% OINT 22 GM TP SCH (08:00)
[2020-09-20 08:15] LABS: Basophils # (Auto) 0.1 K/mm3 (0.0-0.1); Basophils % (Auto) 0.7 % (0.0-1.8); Eosinophils # (Auto) 0.4 K/mm3 (0.0-0.4); Eosinophils % (Auto) 4.4 % (0.0-4.3); Hematocrit 37.9 % (30.3-42.9); Hemoglobin 13.1 gm/dl (10.1-14.3); Lymphocytes # (Auto) 2.7 K/mm3 (1.2-5.4); Lymphocytes % (Auto) 27.6 % (13.4-35.0); Mean Corpuscular HGB Conc 35 % (30-34); Mean Corpuscular Volume 95 fl (79-97); Monocytes # (Auto) 0.7 K/mm3 (0.0-0.8); Monocytes % (Auto) 6.9 % (0.0-7.3); Platelet Count 243 K/mm3 (140-440); Red Blood Count 3.98 M/mm3 (3.65-5.03); Red Cell Distribution Width 13.2 % (13.2-15.2)
[2020-09-20 08:18] LABS: INR 1.17 (0.87-1.13)
[2020-09-20 08:31] VITALS: BP 142/78
[2020-09-20 08:55] LABS: BUN/Creatinine Ratio TNR; Blood Urea Nitrogen TNR mg/dL (7-17)
[2020-09-20 08:56] LABS: Calcium TNR mg/dL (8.4-10.2); Chol/HDL Ratio TNR %; HDL Cholesterol TNR mg/dL (40-59); Hemolysis Index TNR; LDL Cholesterol,Direct TNR mg/dL (50-130)
[2020-09-20] MEDS ORDERED: NORTRIPTYLINE 25 MG CAP PO SCH (10:00)
[2020-09-20] MEDS ORDERED: TIOTROPIUM 18 MCG CAP INHALATION IH SCH (10:00)
[2020-09-20] MEDS ORDERED: ASPIRIN 325 MG TAB PO SCH (10:00)
[2020-09-20] MEDS ORDERED: NON-FORMULARY EACH (Fluticasone/Salmeterol [Advair Diskus 250-50 Mcg] 1 EACH Disk.W.Dev) IH SCH (10:00)
[2020-09-20] MEDS: BUDESONIDE 0.5 MG/2 ML NEBU IH SCH ×2 (10:14→10:15)
[2020-09-20] MEDS: ARFORMOTEROL 15 MCG/2 ML NEBU IH SCH ×2 (10:14→10:15)
--- NOTE | 2020-09-20 11:12 | Discharge Summary ---
Providers - Providers Date of Admission: 09/19/20 23:25 Date of discharge: 09/20/20 Attending physician: DAVID SHELDON 09/19/20 Consult to Case Management [CONS] Routine Services Needed at Discharge: Component Inspector Notified:: marcos notified 09/19/20 23:25 Consult to Case Management [CONS] Routine Services Needed at Discharge: Other Component Inspector Notified:: cm notified Occupational Therapy Evaluate and Treat [CONS] Routine Comment: Reason For Exam: Neuro deficits Physical Therapy Evaluation and Treat [CONS] Routine Comment: Reason For Exam: Neuro deficits Primary care physician: ASSISTANT [employer] Hospitalization Condition: Fair Hospital course: Discharge diagnosis: --Right ear pain, severe -Resolved, CT head without any acute findings -Outpatient follow-up with ENT/PCP --Substance abuse, counseled --Hypertension, continue home meds --COPD without exacerbation, stable Disposition: DC-01 TO HOME OR SELFCARE Time spent for discharge: 34 minutes Core Measure Documentation - Palliative Care Palliative Care/ Comfort Measures: Not Applicable - Core Measures Any of the following diagnoses?: none Exam - Constitutional Vitals: Temp Pulse Resp BP Pulse Ox 97.9 F 88 18 142/78 97 09/20/20 08:06 09/20/20 10:39 09/20/20 10:39 09/20/20 08:06 09/20/20 08:06 Plan Activity: advance as tolerated Weight Bearing Status: Weight Bear as Tolerated Diet: low fat, low salt Follow up with: PRIMARY CAREMD [Primary Care Provider] - 7 Days
[2020-09-20 15:13] LABS: Blood Urea Nitrogen 11 mg/dL (7-17); Calcium 9.4 mg/dL (8.4-10.2); Hemolysis Index 96
[2020-09-20 15:21] LABS: BUN/Creatinine Ratio 16
[2020-09-20] MEDS ORDERED: ALPRAZolam 1 MG TAB PO SCH (22:00)
== END 2020-09-20 15:44 | disposition home or self-care (01) ==
LOC: ED 18:10 → 4A 23:25
PROVIDERS: ADMIT Hospitalist; ATTEND Internal Medicine
DX: G45.9 Transient cerebral ischemic attack, unspecified (principal); I10 Essential (primary) hypertension; R41.82 Altered mental status, unspecified; H92.01 Otalgia, right ear; J44.9 Chronic obstructive pulmonary disease, unspecified; M19.90 Unspecified osteoarthritis, unspecified site; E87.6 Hypokalemia; F41.9 Anxiety disorder, unspecified; F32.9 Major depressive disorder, single episode, unspecified; F17.200 Nicotine dependence, unspecified, uncomplicated; R29.702 NIHSS score 2; Z79.82 Long term (current) use of aspirin; Z98.891 History of uterine scar from previous surgery; Z98.51 Tubal ligation status; Z90.49 Acquired absence of other specified parts of digestive tract; Z79.899 Other long term (current) drug therapy
CPT/HCPCS: 36415; 70450; 70496; 70498; 80048; 80061; 80076; 80307; 81001; 82140; 84443; 84484; 85025; 85610; 85670; 85730; 93005; 94640; 96365; 96366; 96372; 97161; 97165; 99285; G0378; J0696; J1644; J7030; Q9967; 80320; G0480

== ENCOUNTER 2020-10-06 01:15 | Emergency (ER) | payer MEDICAID ==
[2020-10-06] MEDS ORDERED: MORPHINE 4 MG/1 ML INJ IM ONE (01:28)
--- NOTE | 2020-10-06 01:32 | Emergency Department Report ---
HPI - General Time Seen by Provider: 10/06/20 01:26 - HPI HPI: This is a 50-year-old female presents to the emergency department via EMS from home with a complaint of a posterior headache after a fall at home this evening. Patient says that she tripped on something and fell backwards hitting her head. She denies any loss of consciousness. The patient also says that she has right arm pain and she says that a door closed on her arm while she was being transported with EMS. Patient is talking with a clenched jaw and when asked why she says that her jaw is hurting her after the fall as well. She denies any vision change, slurred speech, numbness or paresthesias, chest pain, abdominal pain. Patient has a history of COPD but is not oxygen dependent. She has a history of hypertension and the patient says that she has a history of "tremors for years." I saw this patient about 2 weeks ago at this emergency department and the patient was admitted after having some type of unresponsive episode versus a TIA. The patient does not take anything, nor receive anything, for her symptoms prior to presentation. ED Past Medical Hx - Past Medical History Hx Hypertension: Yes Hx Heart Attack/AMI: No Hx Congestive Heart Failure: No Hx Diabetes: No Hx Deep Vein Thrombosis: No Hx Arthritis: Yes Hx Headaches / Migraines: No Hx Psychiatric Treatment: Yes (DEPRESSION,anxiety) Hx COPD: Yes Hx HIV: No Additional medical history: CHRONIC BACK PAIN, OA - Surgical History Hx Coronary Stent: No Additional Surgical History: CS 4X,TUBAL LIGATION, TONSILECTOMY - Social History Smoking Status: Never Smoker - Medications Home Medications: Home Medications Medication Instructions Recorded Confirmed Last Taken Type Ibuprofen [Motrin 800 MG tab] 800 mg PO TID PRN #21 tablet 09/20/14 03/30/15 03/29/15 Rx ALPRAZolam [Xanax TAB] 2 mg PO QHS 03/30/15 03/30/15 03/29/15 History Albuterol Mdi (or & Nicu Only) 2 puff IH TID PRN 03/30/15 03/30/15 03/30/15 History [ProAir HFA Inhaler] Chlorthalidone [Thalitone] 25 mg PO QDAY 03/30/15 03/30/15 03/23/15 History Fluticasone/Salmeterol [Advair 1 each IH QDAY 03/30/15 03/30/15 Unknown History Diskus 250-50 mcg] Nortriptyline [Pamelor] 25 mg PO QDAY 03/30/15 03/30/15 03/23/15 History Oxycodone HCl/Acetaminophen 1 tab PO Q6HR 03/30/15 03/30/15 03/30/15 09:00 History [Oxycodone-Acetaminophen 5-325] Tiotropium [Spiriva] 1 tab INHALATION QDAY 03/30/15 03/30/15 03/29/15 History Acetaminophen/Codeine [Tylenol 1 tab PO Q4HR PRN #10 tablet 08/13/16 Unknown Rx /Codeine # 3 tab] Ibuprofen [Motrin 800 MG tab] 800 mg PO Q8HR PRN #15 tablet 08/13/16 Unknown Rx Mupirocin [Bactroban 2% OINT] 1 applic TP TID #1 tube 04/08/19 Unknown Rx Azithromycin [Zithromax] 250 mg PO DAILY #6 tablet 09/20/20 Unknown Rx Hydroxyzine HCl [hydrOXYzine] 50 mg PO Q8H #20 tablet 09/20/20 Unknown Rx traMADoL [Ultram 50 MG tab] 50 mg PO Q6HR PRN #10 tablet 10/06/20 Unknown Rx ED Review of Systems ROS: Stated complaint: LEG PAIN Other details as noted in HPI Comment: All other systems reviewed and negative Constitutional: denies: chills, fever Eyes: denies: eye pain, vision change ENT: denies: ear pain, throat pain Respiratory: denies: cough, shortness of breath Cardiovascular: denies: chest pain, palpitations Gastrointestinal: denies: abdominal pain, vomiting Genitourinary: denies: dysuria, discharge Musculoskeletal: arthralgia, myalgia Skin: denies: rash, lesions Neurological: headache. denies: weakness, numbness Physical Exam - Physical Exam Physical Exam: GENERAL: The patient is well-developed well-nourished. HENT: Normocephalic. Patient has moist mucous membranes. EYES: Extraocular motions are intact. Pupils equal reactive to light bilaterally. NECK: Supple. Trachea is midline. There is midline and bilateral paraspinal tenderness to palpation. CHEST/LUNGS: Clear to auscultation. There is no respiratory distress noted. HEART/CARDIOVASCULAR: Regular. There is no tachycardia. There is no murmur. ABDOMEN: Abdomen is soft, nontender. Patient has normal bowel sounds. There is no abdominal distention. SKIN: Skin is warm and dry. NEURO: The patient is awake, alert, and oriented. The patient is cooperative. The patient has no focal neurologic deficits. Normal speech. Cranial nerves II through XII grossly intact. MUSCULOSKELETAL: There is no tenderness or deformity. There is no limitation range of motion. There is no evidence of acute injury. BACK: No midline thoracic or lumbar tenderness to palpation. ED Medical Decision Making - Lab Data Result diagrams: 10/06/20 01:10/06/20 01: Lab Results 10/06/20 10/06/20 10/06/20 Range/Units 01:33 01::33 WBC 10.3 (4.5-11.0) K/mm3 RBC 3.60 L (3.65-5.03) M/mm3 Hgb 11.7 (10.1-14.3) gm/dl Hct 34.3 (30.3-42.9) % MCV 95 (79-97) fl MCH 32 (28-32) pg MCHC 34 (30-34) % RDW 12.9 L (13.2-15.2) % Plt Count 275 (140-440) K/mm3 Lymph % (Auto) 19.0 (13.4-35.0) % Adams % (Auto) 7.3 (0.0-7.3) % Eos % (Auto) 5.5 H (0.0-4.3) % Baso % (Auto) 0.6 (0.0-1.8) % Lymph # (Auto) 2.0 (1.2-5.4) K/mm3 Adams # (Auto) 0.8 (0.0-0.8) K/mm3 Eos # (Auto) 0.6 H (0.0-0.4) K/mm3 Baso # (Auto) 0.1 (0.0-0.1) K/mm3 Seg Neutrophils % 67.6 (40.0-70.0) % Seg Neutrophils # 7.0 (1.8-7.7) K/mm3 Sodium 140 (137-145) mmol/L Potassium 4.1 (3.6-5.0) mmol/L Chloride 104.6 (98-107) mmol/L Carbon Dioxide 23 (22-30) mmol/L Anion Gap 17 mmol/L BUN 17 (7-17) mg/dL Creatinine 0.9 (0.6-1.2) mg/dL Estimated GFR > 60 ml/min BUN/Creatinine Ratio 19 % Glucose 87 (65-100) mg/dL Calcium 9.1 (8.4-10.2) mg/dL Total Bilirubin 0.40 (0.1-1.2) mg/dL AST 19 (5-40) units/L ALT 16 (7-56) units/L Alkaline Phosphatase 68 (35-129) units/L Total Creatine Kinase 203 H (30-135) units/L Total Protein 7.3 (6.3-8.2) g/dL Albumin 4.1 (3.9-5) g/dL Albumin/Globulin Ratio 1.3 % Plasma/Serum Alcohol < 0.01 (0-0.07) % - Radiology Data Radiology results: report reviewed, image reviewed interpreted by me: X-ray of the right humerus and right forearm do not show any fractures, subluxation, dislocation, or any acute process. CT HEAD WITHOUT CONTRAST INDICATION / CLINICAL INFORMATION: Pt states she fell backwards hitting her head, now with head pain. TECHNIQUE: All CT scans at this location are performed using CT dose reduction for ALARA by means of automated exposure control. COMPARISON: CT scan dated 09/19/2020 FINDINGS: There is motion artifact HEMORRHAGE: None. EXTRA-AXIAL SPACES: Normal in size and morphology for the patient's age. VENTRICULAR SYSTEM: Normal in size and morphology for the patient's age. CEREBRAL PARENCHYMA: No acute territorial infarct is identified. There is a small lacunar infarct in the right basal ganglia. MIDLINE SHIFT / HERNIATION: None. CEREBELLUM / BRAINSTEM: No significant abnormality. ORBITS: Normal as visualized. SOFT TISSUES: No significant abnormality. SKULL: No significant abnormality. PARANASAL SINUSES / MASTOID AIR CELLS: Normal as visualized. ADDITIONAL FINDINGS: None. IMPRESSION: 1. There is a small lacunar infarct in right basal ganglia. There is no intracranial hemorrhage, mass effect, or midline shift. CT facial bones wo con INDICATION: Pt states she fell backwards hitting her head, now with face pain. TECHNIQUE: All CT scans at this location are performed using the following dose modulation technique: Automated exposure control. Helical slices were obtained through the facial bones. Coronal and sagittal reformatted images were obtained. COMPARISON: None available. FINDINGS: No fracture is seen in the facial bones. No focal lytic or sclerotic lesions are seen. The paranasal sinuses and mastoid air cells are normally aerated. IMPRESSION: 1. No fracture is seen. The paranasal sinuses are normally aerated. CT CERVICAL SPINE WITHOUT CONTRAST INDICATION / CLINICAL INFORMATION: Pt states she fell backwards hitting her head, now with neck pain. TECHNIQUE: Axial CT images were obtained through the cervical spine. Sagittal and coronal reformatted images were produced. All CT scans at this location are performed using CT dose reduction for ALARA by means of automated exposure control. COMPARISON: None available. FINDINGS: VERTEBRAE: No significant abnormality. ALIGNMENT: No significant abnormality. DISC SPACES: There is disc space narrowing with anterior osteophyte formation at C5-6. FACET JOINTS: There is mild degenerative change throughout the cervical spine. CRANIOCERVICAL J UNCTION:No significant abnormality. SPINAL CANAL: No significant abnormality. PARASPINAL SOFT TISSUES: No significant abnormality. ADDITIONAL FINDINGS: None. LUNG APICES: No significant abnormality of visualized lungs. IMPRESSION: 1. There is mild facet degenerative change. There is discogenic degenerative change at C5-6. No fracture or subluxation is seen. - Medical Decision Making This patient presents to the emergency department with a complaint of posterior head pain after having a fall in her room prior to presentation. She also complained of some right arm pain that had something to do with, or occurred while, being transported to the emergency department from home via EMS. X-rays were done of the right upper extremity that do not show any fractures, dislocation, subluxation, foreign body, or any other acute process. The patient had a CT scan done of the head, cervical spine, and facial bones, that also did not show any fractures, hemorrhage, dislocation, subluxation, or any acute processes. Patient's labs have been mostly unremarkable including CBC, metabolic panel, CK level and blood alcohol level. She was given a dose of IM analgesia with improvement of her discomfort and it allowed us to complete her evaluation. Vital signs have been reassuring throughout her ED course. The patient appears safe for discharge home at this time. She has been given multiple referrals for primary care for follow-up. Critical Care Time: No Critical care attestation.: If time is entered above; I have spent that time in minutes in the direct care of this critically ill patient, excluding procedure time. ED Disposition Clinical Impression: Right arm pain Fall Qualifiers: Encounter type: initial encounter Qualified Code(s): W19.XXXA - Unspecified fall, initial encounter Closed head injury Qualifiers: Encounter type: initial encounter Qualified Code(s): S09.90XA - Unspecified injury of head, initial encounter Head contusion Qualifiers: Encounter type: initial encounter Contusion of head detail: unspecified part of head Qualified Code(s): S00.93XA - Contusion of unspecified part of head, init ial encounter Disposition: TO HOME OR SELFCARE Is pt being admited?: No Condition: Stable Instructions: Facial or Scalp Contusion, Head Injury, Adult, [id number] Additional Instructions: Please follow-up with a primary care physician in the next few days. I am gi ving you a few different referrals for local primary care physicians and clinics. You have been prescribed a medication that is sedating and therefore should not be taken prior to driving, working, and responsible for children and in no way should be mixed with alcohol of any quantity. Return to the emergency department with any worsening of your symptoms, new or concerning symptoms not addressed during this current emergency department visit, or with any acute distress. Prescriptions: traMADoL [Ultram 50 MG tab] 50 mg PO Q6HR PRN #10 tablet PRN Reason: Pain Referrals: PRIMARY MD LENA [Primary Care Provider] - 3-5 Days EMILIE MEAD MD [Staff Physician] - 3-5 Days KAMERON MCGOVERN MD [Staff Physician] - 3-5 Days [facility] [Provider Group] - 3-5 Days Time of Disposition: 03:04
[2020-10-06 01:53] LABS: Basophils # (Auto) 0.1 K/mm3 (0.0-0.1); Basophils % (Auto) 0.6 % (0.0-1.8); Eosinophils # (Auto) 0.6 K/mm3 (0.0-0.4); Eosinophils % (Auto) 5.5 % (0.0-4.3); Hematocrit 34.3 % (30.3-42.9); Hemoglobin 11.7 gm/dl (10.1-14.3); Mean Corpuscular HGB Conc 34 % (30-34); Mean Corpuscular Volume 95 fl (79-97); Monocytes # (Auto) 0.8 K/mm3 (0.0-0.8); Monocytes % (Auto) 7.3 % (0.0-7.3); Platelet Count 275 K/mm3 (140-440); Red Cell Distribution Width 12.9 % (13.2-15.2)
[2020-10-06 02:06] LABS: Alanine Aminotransferase 16 units/L (7-56); Albumin 4.1 g/dL (3.9-5); BUN/Creatinine Ratio 19; Blood Urea Nitrogen 17 mg/dL (7-17); Calcium 9.1 mg/dL (8.4-10.2); Hemolysis Index 15
--- NOTE | 2020-10-06 02:10 | XRay Report ---
RIGHT HUMERUS 2 VIEWS INDICATION / CLINICAL INFORMATION: Trauma COMPARISON: None available. FINDINGS: BONES / JOINT(S): No acute fracture or subluxation. No significant arthritis. SOFT TISSUES: No significant abnormality. ADDITIONAL FINDINGS: None. Signer Name: Zurdo Morgan MD Signed: 10/06/2020 2:05 AM Workstation Name: [id number]
--- NOTE | 2020-10-06 02:11 | XRay Report ---
RIGHT FOREARM 2 VIEWS INDICATION / CLINICAL INFORMATION: Trauma COMPARISON: None available. FINDINGS: BONES / JOINT(S): No acute fracture or subluxation. No significant arthritis. SOFT TISSUES: No significant abnormality. ADDITIONAL FINDINGS: None. Signer Name: Zurdo Morgan MD Signed: 10/06/2020 2:07 AM Workstation Name: [email or web address]
--- NOTE | 2020-10-06 02:49 | Cat Scan Report ---
CT HEAD WITHOUT CONTRAST INDICATION / CLINICAL INFORMATION: Pt states she fell backwards hitting her head, now with head pain. TECHNIQUE: All CT scans at this location are performed using CT dose reduction for ALARA by means of automated exposure control. COMPARISON: CT scan dated 09/19/2020 FINDINGS: There is motion artifact HEMORRHAGE: None. EXTRA-AXIAL SPACES: Normal in size and morphology for the patient's age. VENTRICULAR SYSTEM: Normal in size and morphology for the patient's age. CEREBRAL PARENCHYMA: No acute territorial infarct is identified. There is a small lacunar infarct in the right basal ganglia. MIDLINE SHIFT / HERNIATION: None. CEREBELLUM / BRAINSTEM: No significant abnormality. ORBITS: Normal as visualized. SOFT TISSUES: No significant abnormality. SKULL: No significant abnormality. PARANASAL SINUSES / MASTOID AIR CELLS: Normal as visualized. ADDITIONAL FINDINGS: None. IMPRESSION: 1. There is a small lacunar infarct in right basal ganglia. There is no intracranial hemorrhage, mass effect, or midline shift. Signer Name: Zurdo Morgan MD Signed: 10/06/2020 2:44 AM Workstation Name: [id number]
--- NOTE | 2020-10-06 02:52 | Cat Scan Report ---
CT facial bones wo con INDICATION: Pt states she fell backwards hitting her head, now with face pain. TECHNIQUE: All CT scans at this location are performed using the following dose modulation technique: Automated exposure control. Helical slices were obtained through the facial bones. Coronal and sagittal reforma tted images were obtained. COMPARISON: None available. FINDINGS: No fracture is seen in the facial bones. No focal lytic or sclerotic lesions are seen. The paranasal sinuses and mastoid air cells are normally aerated. IMPRESSION: 1. No fracture is seen. The paranasal sinuses are normally aerated. Signer Name: Zurdo Morgan MD Signed: 10/06/2020 2:48 AM Workstation Name: [id number]
--- NOTE | 2020-10-06 02:56 | Cat Scan Report ---
CT CERVICAL SPINE WITHOUT CONTRAST INDICATION / CLINICAL INFORMATION: Pt states she fell backwards hitting her head, now with neck pain. TECHNIQUE: Axial CT images were obtained through the cervical spine. Sagittal and coronal reformatted images were produced. All CT scans at this location are performed using CT dose reduction for ALARA by means of automated exposure control. COMPARISON: None available. FINDINGS: VERTEBRAE: No significant abnormality. ALIGNMENT: No significant abnormality. DISC SPACES: There is disc space narrowing with anterior osteophyte formation at C5-6. FACET JOINTS: There is mild degenerative change throughout the cervical spine. CRANIOCERVICAL JUNCTIO N:No significant abnormality. SPINAL CANAL: No significant abnormality. PARASPINAL SOFT TISSUES: No significant abnormality. ADDITIONAL FINDINGS: None. LUNG APICES: No significant abnormality of visualized lungs. IMPRESSION: 1. There is mild facet degenerative change. There is discogenic degenerative change at C5-6. No fract ure or subluxation is seen. Signer Name: Zurdo Morgan MD Signed: 10/06/2020 2:51 AM Workstation Name: [id number]
[2020-10-06 05:04] VITALS: BP 129/69
== END 2020-10-06 08:01 | disposition home or self-care (01) ==
LOC: ED 01:15
DX: S09.90XA Unspecified injury of head, initial encounter (principal); M79.601 Pain in right arm; I10 Essential (primary) hypertension; M19.91 Primary osteoarthritis, unspecified site; F32.9 Major depressive disorder, single episode, unspecified; F41.9 Anxiety disorder, unspecified; J44.9 Chronic obstructive pulmonary disease, unspecified; Z90.89 Acquired absence of other organs; Z98.890 Other specified postprocedural states; Z79.1 Long term (current) use of non-steroidal anti-inflammatories (NSAID); Z79.2 Long term (current) use of antibiotics; Z79.899 Other long term (current) drug therapy; Z88.2 Allergy status to sulfonamides; W01.0XXA Fall on same level from slipping, tripping and stumbling without subsequent striking against object, initial encounter; Y93.89 Activity, other specified; Y92.009 Unspecified place in unspecified non-institutional (private) residence as the place of occurrence of the external cause; Y99.8 Other external cause status
CPT/HCPCS: 36415; 70450; 70486; 72125; 73060; 73090; 80053; 82550; 85025; 96372; 99285; J2270; 80320; G0480

== ENCOUNTER 2020-10-15 17:47 | Emergency (ER) | payer MEDICAID ==
[2020-10-15] MEDS ORDERED: levETIRAcetam 1000 MG/NS 0.75% 1,000 MG/100 ML BAG IV ONE (17:53)
--- NOTE | 2020-10-15 18:16 | Emergency Department Report ---
ED Altered Mental Status HPI - General Chief Complaint: Altered Mental Status Stated Complaint: ALTERED MENTAL Time Seen by Provider: 10/15/20 17:52 Source: EMS Mode of arrival: Stretcher Limitations: Altered Mental Status - History of Present Illness Initial Comments: Patient is a 50-year-old female who is presenting with altered mental status. Initial call from someone who lives with the patient was for seizure. Is unknown whether the patient has a seizure disorder however she did shake her head yes that she has had seizures in the past but no that she is not on any medications. Patient was poorly conscious on EMS arrival. She was given Narcan and became more alert. The person at her home states that she has not been using any drugs. Patient is only communicating by shaking her head yes or no except for answering that she does know her name and was able to give her full name by mouth. - Related Data Home Medications Medication Instructions Recorded Confirmed Last Taken ALPRAZolam [Xanax TAB] 2 mg PO QHS 03/30/15 03/30/15 03/29/15 Albuterol Mdi (or & Nicu Only) 2 puff IH TID PRN 03/30/15 03/30/15 03/30/15 [ProAir HFA Inhaler] Chlorthalidone [Thalitone] 25 mg PO QDAY 03/30/15 03/30/15 03/23/15 Fluticasone/Salmeterol [Advair 1 each IH QDAY 03/30/15 03/30/15 Unknown Diskus 250-50 mcg] Nortriptyline [Pamelor] 25 mg PO QDAY 03/30/15 03/30/15 03/23/15 Oxycodone HCl/Acetaminophen 1 tab PO Q6HR 03/30/15 03/30/15 03/30/15 09:00 [Oxycodone-Acetaminophen 5-325] Tiotropium [Spiriva] 1 tab INHALATION QDAY 03/30/15 03/30/15 03/29/15 Previous Rx's Medication Instructions Recorded Last Taken Type Ibuprofen [Motrin 800 MG tab] 800 mg PO TID PRN #21 tablet 09/20/14 03/29/15 Rx Acetaminophen/Codeine [Tylenol 1 tab PO Q4HR PRN #10 tablet 08/13/16 Unknown Rx /Codeine # 3 tab] Ibuprofen [Motrin 800 MG tab] 800 mg PO Q8HR PRN #15 tablet 08/13/16 Unknown Rx Mupirocin [Bactroban 2% OINT] 1 applic TP TID #1 tube 04/08/19 Unknown Rx Azithromycin [Zithromax] 250 mg PO DAILY #6 tablet 09/20/20 Unknown Rx Hydroxyzine HCl [hydrOXYzine] 50 mg PO Q8H #20 tablet 09/20/20 Unknown Rx traMADoL [Ultram 50 MG tab] 50 mg PO Q6HR PRN #10 tablet 10/06/20 Unknown Rx Nitrofurantoin [place]/M-Cryst 100 mg PO Q12HR #14 capsule 10/15/20 Unknown Rx [Macrobid CAP] levETIRAcetam [Keppra TAB] 500 mg PO BID #60 tablet 10/15/20 Unknown Rx Allergies Allergy/AdvReac Type Severity Reaction Status Date / Time Sulfa (Sulfonamide Allergy Unknown Verified 04/08/19 14:21 Antibiotics) ED Review of Systems ROS: Stated complaint: ALTERED MENTAL Other details as noted in HPI Comment: Unobtainable due to pts medical conditions ED Past Medical Hx - Past Medical History Hx Hypertension: Yes Hx CVA: Yes Hx Heart Attack/AMI: No Hx Congestive Heart Failure: No Hx Diabetes: No Hx Deep Vein Thrombosis: No Hx Arthritis: Yes Hx Headaches / Migraines: No Hx Psychiatric Treatment: Yes (DEPRESSION,anxiety) Hx COPD: Yes Hx HIV: No Additional medical history: CHRONIC BACK PAIN, OA, TIA - Surgical History Hx Coronary Stent: No Additional Surgical History: CS 4X,TUBAL LIGATION, TONSILECTOMY - Social History Smoking Status: Current Every Day Smoker Substance Use Type: None - Medications Home Medications: Home Medications Medication Instructions Recorded Confirmed Last Taken Type Ibuprofen [Motrin 800 MG tab] 800 mg PO TID PRN #21 tablet 09/20/14 03/30/15 03/29/15 Rx ALPRAZolam [Xanax TAB] 2 mg PO QHS 03/30/15 03/30/15 03/29/15 History Albuterol Mdi (or & Nicu Only) 2 puff IH TID PRN 03/30/15 03/30/15 03/30/15 History [ProAir HFA Inhaler] Chlorthalidone [Thalitone] 25 mg PO QDAY 03/30/15 03/30/15 03/23/15 History Fluticasone/Salmeterol [Advair 1 each IH QDAY 03/30/15 03/30/15 Unknown History Diskus 250-50 mcg] Nortriptyline [Pamelor] 25 mg PO QDAY 03/30/15 03/30/15 03/23/15 History Oxycodone HCl/Acetaminophen 1 tab PO Q6HR 03/30/15 03/30/15 03/30/15 09:00 History [Oxycodone-Acetaminophen 5-325] Tiotropium [Spiriva] 1 tab INHALATION QDAY 03/30/15 03/30/15 03/29/15 History Acetaminophen/Codeine [Tylenol 1 tab PO Q4HR PRN #10 tablet 08/13/16 Unknown Rx /Codeine # 3 tab] Ibuprofen [Motrin 800 MG tab] 800 mg PO Q8HR PRN #15 tablet 08/13/16 Unknown Rx Mupirocin [Bactroban 2% OINT] 1 applic TP TID #1 tube 04/08/19 Unknown Rx Azithromycin [Zithromax] 250 mg PO DAILY #6 tablet 09/20/20 Unknown Rx Hydroxyzine HCl [hydrOXYzine] 50 mg PO Q8H #20 tablet 09/20/20 Unknown Rx traMADoL [Ultram 50 MG tab] 50 mg PO Q6HR PRN #10 tablet 10/06/20 Unknown Rx Nitrofurantoin [place]/M-Cryst 100 mg PO Q12HR #14 capsule 10/15/20 Unknown Rx [Macrobid CAP] levETIRAcetam [Keppra TAB] 500 mg PO BID #60 tablet 10/15/20 Unknown Rx ED Physical Exam - General Limitations: Altered Mental Status General appearance: alert, postictal - Head Head exam: Present: atraumatic, normocephalic - Eye Eye exam: Present: normal appearance, PERRL, EOMI - ENT ENT exam: Present: mucous membranes moist - Neck Neck exam: Present: normal inspection - Respiratory Respiratory exam: Present: normal lung sounds bilaterally. Absent: respiratory distress, wheezes, rales, rhonchi - Cardiovascular Cardiovascular Exam: Present: regular rate, normal rhythm, normal heart sounds. Absent: systolic murmur, diastolic murmur, rubs, gallop - GI/Abdominal GI/Abdominal exam: Present: soft, normal bowel sounds. Absent: distended, tenderness, guarding, rebound - Extremities Exam Extremities exam: Present: normal inspection - Back Exam Back exam: Present: normal inspection - Neurological Exam Neurological exam: Present: alert, altered - Psychiatric Psychiatric exam: Present: normal affect, normal mood - Skin Skin exam: Present: warm, dry, intact, normal color. Absent: rash - Assessment Assessment Interval: Baseline - Level of Consciousness 1a. Level of Consciousness: alert/keenly responsive - LOC Questions 1b. LOC Questions: answers both correctly - LOC Command 1c. LOC Commands: performs tasks correctly - Best Gaze 2. Best Gaze: normal - Visual 3. Visual: no visual loss - Facial Palsy 4. Facial Palsy: normal symmetrical movement - Motor Arm 5a. Motor Arm Left: no drift 5b. Motor Arm Right: no drift - Motor Leg 6a. Motor Leg Left: no drift 6b. Motor Leg Right: no drift - Limb Ataxia 7. Limb Ataxia: absent - Sensory 8. Sensory: normal - Best Language 9. Best Language: no aphasia - Dysarthria 10. Dysarthria: mild/moderate dysarthria - Extinction and Inattention 11. Extinction/Inattention: no abnormality - Scoring Total Score: 1 Stroke Severity: Minor Stroke ED Course Vital Signs 10/15/20 10/15/20 10/15/20 17:50 17:54 17:58 Temperature 97.8 F 97.8 F Pulse Rate 74 74 Respiratory 13 13 13 Rate Blood Pressure 151/89 Blood Pressure 151/89 [Left] O2 Sat by Pulse 100 100 100 Oximetry - Reevaluation(s) Reevaluation #1: 10/15/20 19:07 Patient much more talkative now. States she suffers from chronic pain and be cause of it she states she has decreased appetite. Feels as though she is dehydrated. States she has had seizures in the past before and also has had syncopal episodes. Syncopal episodes been from dehydration. Laboratory studies at this time do not show any significant abnormality of her kidney function. We will give the patient a liter of fluid for possible mild dehydration. Patient was loaded with Keppra. Patient appears to be stable for discharge. - Lab Data Result diagrams: 10/15/20 17:59 10/15/20 17:59 Lab Results 10/15/20 10/15/20 10/15/20 Range/Units 17:58 17:59 17:59 WBC 7.4 (4.5-11.0) K/mm3 RBC 3.79 (3.65-5.03) M/mm3 Hgb 12.6 (10.1-14.3) gm/dl Hct 36.2 (30.3-42.9) % MCV 96 (79-97) fl MCH 33 H (28-32) pg MCHC 35 H (30-34) % RDW 12.8 L (13.2-15.2) % Plt Count 233 (140-440) K/mm3 Lymph % (Auto) 22.7 (13.4-35.0) % [place] % (Auto) 9.5 H (0.0-7.3) % Eos % (Auto) 7.7 H (0.0-4.3) % Baso % (Auto) 1.1 (0.0-1.8) % Lymph # (Auto) 1.7 (1.2-5.4) K/mm3 [place] # (Auto) 0.7 (0.0-0.8) K/mm3 Eos # (Auto) 0.6 H (0.0-0.4) K/mm3 Baso # (Auto) 0.1 (0.0-0.1) K/mm3 Seg Neutrophils % 59.0 (40.0-70.0) % Seg Neutrophils # 4.4 (1.8-7.7) K/mm3 Sodium 137 (137-145) mmol/L Potassium 3.9 (3.6-5.0) mmol/L Chloride 105.0 (98-107) mmol/L Carbon Dioxide 23 (22-30) mmol/L Anion Gap 13 mmol/L BUN 17 (7-17) mg/dL Creatinine 0.9 (0.6-1.2) mg/dL Estimated GFR > 60 ml/min BUN/Creatinine Ratio 19 % Glucose 100 (65-100) mg/dL Calcium 9.3 (8.4-10.2) mg/dL Total Bilirubin 0.50 (0.1-1.2) mg/dL AST 27 (5-40) units/L ALT 18 (7-56) units/L Alkaline Phosphatase 60 (35-129) units/L Total Protein 7.3 (6.3-8.2) g/dL Albumin 4.2 (3.9-5) g/dL Albumin/Globulin Ratio 1.4 % Urine Color (Yellow) Urine Turbidity (Clear) Urine pH (5.0-7.0) Ur Specific [place] (1.003-1.030) Urine Protein (Negative) mg/dL Urine Glucose (UA) (Negative) mg/dL Urine Ketones (Negative) mg/dL Urine Blood (Negative) Urine Nitrite (Negative) Urine Bilirubin (Negative) Urine Urobilinogen (<2.0) mg/dL Ur Leukocyte Esterase (Negative) Urine WBC (Auto) (0.0-6.0) /HPF Urine RBC (Auto) (0.0-6.0) /HPF U Epithel Cells (Auto) (0-13.0) /HPF Urine Mucus /HPF Urine Yeast (Budding) /HPF Urine Opiates Screen Urine Methadone Screen Ur Barbiturates Screen Ur Phencyclidine Scrn U Benzodiazepines Scrn Urine Cocaine Screen Plasma/Serum Alcohol < 0.01 (0-0.07) % 10/15/20 10/15/20 Range/Units 18:30 18:30 WBC (4.5-11.0) K/mm3 RBC (3.65-5.03) M/mm3 Hgb (10.1-14.3) gm/dl Hct (30.3-42.9) % MCV (79-97) fl MCH (28-32) pg MCHC (30-34) % RDW (13.2-15.2) % Plt Count (140-440) K/mm3 Lymph % (Auto) (13.4-35.0) % [place] % (Auto) (0.0-7.3) % Eos % (Auto) (0.0-4.3) % Baso % (Auto) (0.0-1.8) % Lymph # (Auto) (1.2-5.4) K/mm3 [place] # (Auto) (0.0-0.8) K/mm3 Eos # (Auto) (0.0-0.4) K/mm3 Baso # (Auto) (0.0-0.1) K/mm3 Seg Neutrophils % (40.0-70.0) % Seg Neutrophils # (1.8-7.7) K/mm3 Sodium (137-145) mmol/L Potassium (3.6-5.0) mmol/L Chloride (98-107) mmol/L Carbon Dioxide (22-30) mmol/L Anion Gap mmol/L BUN (7-17) mg/dL Creatinine (0.6-1.2) mg/dL Estimated GFR ml/min BUN/Creatinine Ratio % Glucose (65-100) mg/dL Calcium (8.4-10.2) mg/dL Total Bilirubin (0.1-1.2) mg/dL AST (5-40) units/L ALT (7-56) units/L Alkaline Phosphatase (35-129) units/L Total Protein (6.3-8.2) g/dL Albumin (3.9-5) g/dL Albumin/Globulin Ratio % Urine Color [place] (Yellow) Urine Turbidity Slightly-cloudy (Clear) Urine pH 5.0 (5.0-7.0) Ur Specific [place] 1.029 (1.003-1.030) Urine Protein 30 mg/dl (Negative) mg/dL Urine Glucose (UA) Neg (Negative) mg/dL Urine Ketones Tr (Negative) mg/dL Urine Blood Sm (Negative) Urine Nitrite Neg (Negative) Urine Bilirubin Neg (Negative) Urine Urobilinogen 2.0 (<2.0) mg/dL Ur Leukocyte Esterase Mod (Negative) Urine WBC (Auto) 73.0 H (0.0-6.0) /HPF Urine RBC (Auto) 32.0 (0.0-6.0) /HPF U Epithel Cells (Auto) 11.0 (0-13.0) /HPF Urine Mucus 3+ /HPF Urine Yeast (Budding) 1+ /HPF Urine Opiates Screen Negative Urine Methadone Screen Negative Ur Barbiturates Screen Negative Ur Phencyclidine Scrn Negative U Benzodiazepines Scrn Negative Urine Cocaine Screen Negative Plasma/Serum Alcohol (0-0.07) % Critical care attestation.: If time is entered above; I have spent that time in minutes in the direct care of this critically ill patient, excluding procedure time. ED Disposition Clinical Impression: Seizure, Unresponsive episode, UTI (urinary tract infection), Chronic pain Disposition: DC01 TO HOME OR SELFCARE Is pt being admited?: No Does the pt Need Aspirin: No Condition: Stable Instructions: Epilepsy, [id number], Urinary Tract Infection, Adult, [id number] Referrals: PRIMARY CARE, [Primary Care Provider] - 3-5 Days Time of Disposition: 19:18
[2020-10-15 18:37] LABS: Basophils # (Auto) 0.1 K/mm3 (0.0-0.1); Basophils % (Auto) 1.1 % (0.0-1.8); Eosinophils # (Auto) 0.6 K/mm3 (0.0-0.4); Eosinophils % (Auto) 7.7 % (0.0-4.3); Hematocrit 36.2 % (30.3-42.9); Hemoglobin 12.6 gm/dl (10.1-14.3); Lymphocytes # (Auto) 1.7 K/mm3 (1.2-5.4); Lymphocytes % (Auto) 22.7 % (13.4-35.0); Mean Corpuscular HGB Conc 35 % (30-34); Mean Corpuscular Volume 96 fl (79-97); Monocytes # (Auto) 0.7 K/mm3 (0.0-0.8); Monocytes % (Auto) 9.5 % (0.0-7.3); Platelet Count 233 K/mm3 (140-440); Red Blood Count 3.79 M/mm3 (3.65-5.03); Red Cell Distribution Width 12.8 % (13.2-15.2)
[2020-10-15 18:52] LABS: Alanine Aminotransferase 18 units/L (7-56); Albumin 4.2 g/dL (3.9-5); BUN/Creatinine Ratio 19; Blood Urea Nitrogen 17 mg/dL (7-17); Calcium 9.3 mg/dL (8.4-10.2); Hemolysis Index 10
[2020-10-15] MEDS ORDERED: SODIUM CHLORIDE 0.9% 1000 ML 1,000 ML IV ONE (19:04)
[2020-10-15 19:12] LABS: Bilirubin,Urine NEG (Negative); Blood,Urine SM (Negative); Color,Urine Amber (Yellow); Mucus,Urine 3+ /HPF
[2020-10-15 19:15] LABS: Benzodiazepines Screen,Urine Negative; Cocaine Screen,Urine Negative; Methadone Screen,Urine Negative; Opiate Screen,Urine Negative
[2020-10-15 19:51] LABS: Amphetamine Screen,Urine Positive; Cannabinoid Screen,Urine Positive
[2020-10-15 21:54] VITALS: BP 146/69
== END 2020-10-15 21:54 | disposition home or self-care (01) ==
LOC: ED 17:47
DX: N39.0 Urinary tract infection, site not specified (principal); R56.9 Unspecified convulsions; G89.29 Other chronic pain; R40.4 Transient alteration of awareness; I10 Essential (primary) hypertension; M19.91 Primary osteoarthritis, unspecified site; F32.9 Major depressive disorder, single episode, unspecified; J44.9 Chronic obstructive pulmonary disease, unspecified; F17.200 Nicotine dependence, unspecified, uncomplicated; Z90.89 Acquired absence of other organs; Z98.51 Tubal ligation status; Z79.1 Long term (current) use of non-steroidal anti-inflammatories (NSAID); Z79.899 Other long term (current) drug therapy; Z88.2 Allergy status to sulfonamides
CPT/HCPCS: 36415; 80053; 80307; 81001; 85025; 87086; 93005; 96365; 99284; J1953; J7030; 80320; G0480

== ENCOUNTER 2021-03-07 12:44 | Outpatient (CLI) | payer MEDICAID ==
--- NOTE | 2021-03-07 14:35 | XRay Report ---
BILATERAL KNEES 6 VIEWS INDICATION / CLINICAL INFORMATION: BILATERAL KNEE PAIN. COMPARISON: None available. FINDINGS: Moderately advanced degenerative change in both patellofemoral joints. Mild medial lateral generative changes also seen in both kidneys. Signer Name: Darryn Juarez MD FACR Signed: 03/07/2021 2:31 PM Workstation Name: [id number]
== END 2021-03-07 12:45 | disposition home or self-care (01) ==
LOC: XRAY 12:44
PROVIDERS: ATTEND Internal Medicine
DX: M17.0 Bilateral primary osteoarthritis of knee (principal); N28.89 Other specified disorders of kidney and ureter

== ENCOUNTER 2021-03-08 10:33 | Outpatient (CLI) | payer MEDICAID ==
[2021-03-08 11:01] LABS: Hematocrit 36.7 % (30.3-42.9); Hemoglobin 12.2 gm/dl (10.1-14.3); Mean Corpuscular HGB Conc 33 % (30-34); Mean Corpuscular Volume 95 fl (79-97); Platelet Count 262 K/mm3 (140-440); Red Blood Count 3.88 M/mm3 (3.65-5.03); Red Cell Distribution Width 13.8 % (13.2-15.2)
[2021-03-08 11:25] LABS: Alanine Aminotransferase 12 units/L (7-56); BUN/Creatinine Ratio 16; Blood Urea Nitrogen 14 mg/dL (7-17); Calcium 9.3 mg/dL (8.4-10.2); Chol/HDL Ratio 2.76 %; HDL Cholesterol 71 mg/dL (40-59); Hemolysis Index 3; LDL Cholesterol,Direct 124 mg/dL (50-130)
[2021-03-08 13:30] LABS: Total Cells Counted 100
[2021-03-08 13:32] LABS: Platelet Estimate Consistent w Auto; RBC Morphology Normal
[2021-03-12 12:46] LABS: Vitamin D, 25-OH, D2 <4 ng/mL
== END 2021-03-08 10:34 | disposition home or self-care (01) ==
LOC: LAB 10:33
PROVIDERS: ATTEND Internal Medicine
DX: Z13.1 Encounter for screening for diabetes mellitus (principal); Z00.00 Encounter for general adult medical examination without abnormal findings; Z13.29 Encounter for screening for other suspected endocrine disorder; E55.9 Vitamin D deficiency, unspecified; E78.5 Hyperlipidemia, unspecified; R73.9 Hyperglycemia, unspecified
CPT/HCPCS: 36415; 80053; 80061; 82306; 83036; 84443; 85007; 85025